=== PATIENT | female | born 1945 | race Caucasian/White ===

== ENCOUNTER 2022-04-26 13:38 | Outpatient (CLI) | payer OTHER, SELFPAY | END 2022-04-26 13:39 | disposition home or self-care (01) | LOC: INJ CL 13:39 | PROVIDERS: PCP Family Medicine; Visit Provider Family Medicine | DX: M17.12 Unilateral primary osteoarthritis, left knee (principal); M25.562 Pain in left knee | CPT/HCPCS: 64454 ==

== ENCOUNTER 2022-05-16 11:29 | Outpatient (REF) | payer OTHER, SELFPAY ==
[2022-05-16 14:18] LABS: SARS PCR* Negative SARS-CoV-2 (Negative)
== END 2022-05-16 11:30 | disposition home or self-care (01) ==
LOC: NPINS 11:29
PROVIDERS: PCP Family Medicine; Visit Provider Family Medicine
DX: Z11.52 Encounter for screening for COVID-19 (principal)
CPT/HCPCS: 87635

== ENCOUNTER 2022-05-17 12:10 | Outpatient (CLI) | payer OTHER, SELFPAY | END 2022-05-17 12:11 | disposition home or self-care (01) | LOC: RAD 12:10 | PROVIDERS: PCP Family Medicine; Visit Provider Family Medicine | DX: M17.12 Unilateral primary osteoarthritis, left knee (principal); G89.29 Other chronic pain; M25.562 Pain in left knee | CPT/HCPCS: 64624; J2250; J2405; J3010 ==

== ENCOUNTER 2022-07-21 10:00 | Outpatient (RCR) | payer OTHER, SELFPAY | END 2022-10-25 11:13 | disposition home or self-care (01) | PROVIDERS: PCP Family Medicine; Visit Provider Family Medicine | DX: M17.12 Unilateral primary osteoarthritis, left knee (principal); Z51.89 Encounter for other specified aftercare | CPT/HCPCS: 97110; 97162 ==

== ENCOUNTER 2023-05-01 13:59 | Emergency (ER) | payer OTHER, SELFPAY ==
[2023-05-01 14:07] VITALS: BP 152/86; PULSE 94; RESP 18; TEMP 36.3; O2SAT 96; BMI 23.8
--- NOTE | 2023-05-01 14:25 | CRLHL7_ITS ---
For Patients: As a result of the Century Cures Act, medical imaging exams and procedure reports are released immediately into your electronic medical record. You may view this report before your referring provider. If you have questions, please contact your health care provider. INDICATION: Pain TECHNIQUE: Cervical spine 3 view. COMPARISON: None. FINDINGS: Bones: Trace anterolisthesis of C3 on C4 and C4 on C5. Mild reversal of the normal cervical lordosis. Changes of ACDF at C6-C7. no fractures. Lateral masses of C1 are aligned on C2. Atlanto-axial interval is maintained. Joints: Multilevel areas of disc space height loss. Soft tissues: Unremarkable. IMPRESSION: Multilevel cervical spondylosis. Dictated by Chema Cobb MD @ 05/01/2023 4:04:48 PM (Electronically Signed)
--- NOTE | 2023-05-01 16:11 | ED.GENADULT ---
HPI - General Adult General Chief complaint: Neck Injury/Pain Stated complaint: Neck pain Time Seen by Provider: 05/01/23 14:17 Source: patient Mode of arrival: ambulatory Limitations: no limitations History of Present Illness HPI narrative: 77-year-old female coming in today complaining of neck pain that is been going on for approximately 1 week. She denies any systemic symptoms such as fevers, chills, nausea or vomiting. Pain comes and goes throughout the day. She has been using heat and ice and Advil which does help. Pain is located on the right side of the posterior neck does not radiate. She has no pain in her arm going up the head. She denies any confusion, fogginess, changes in her hearing or vision. No difficulty breathing or swallowing. Nothing seems to make the pain worse. She did have surgery on her neck she states several years ago. Related Data Home Medications Medication Instructions Recorded Confirmed albuterol 90 mcg/actuation aerosol 2 spray inhalation PRN 08/19/22 08/19/22 inhaler atorvastatin 40 mg tablet mg PO .Bedtime 08/19/22 08/19/22 budesonide 180 mcg/actuation 1 inhalation BID 08/19/22 08/19/22 breath activated powder inhaler montelukast 10 mg tablet 10 mg PO .Bedtime 08/19/22 05/01/23 omeprazole 40 mg capsule,delayed mg PO DAILY 08/19/22 08/19/22 release sertraline 100 mg tablet 150 mg PO DAILY 08/19/22 05/01/23 trazodone 50 mg tablet mg PO 08/19/22 08/19/22 Previous Rx's Medication Instructions Recorded doxycycline hyclate 100 mg capsule 100 mg PO BID #20 caps 08/19/22 methylprednisolone 4 mg tablets in See Rx Instructions PO .COMPLEX 05/01/23 a dose pack (Medrol (Erick)) #21 ea Allergies Allergy/AdvReac Type Severity Reaction Status Date / Time codeine Allergy Unknown Nausea Verified 08/19/22 15:41 Iodine and Iodide Containing Allergy Verified 08/19/22 15:41 Produc lisinopril AdvReac Mild Cough and Verified 08/19/22 15:41 upset stomach contrast dye Allergy Mild Hives Uncoded 08/19/22 15:41 Review of Systems Status of ROS: Reports: 10 or more systems reviewed and unremarkable except as noted in History and below PFSH PFS Surgical History History of total abdominal hysterectomy ?Z90.710 - Acquired absence of both cervix and uterus (ICD-10) History of neck surgery ?Z98.890 - Other specified postprocedural states (ICD-10) History of breast biopsy ?Z98.890 - Other specified postprocedural states (ICD-10) Social History Smoking Status: Former smoker How often do you have a drink containing alcohol: 2-3 times a week AUDIT-C Alcohol total score: 3 Non-prescribed substance use: denies use Exam Narrative: Exam Narrative: Well-nourished well-developed patient in no acute distress. Alert and oriented. Answers questions appropriately. Mood and affect are appropriate. Thoughts are goal oriented and rational. No tangential or magical thinking noted. Patient speaks in full sentences without needing to catch her breath. Voice sounds normal. HEENT: Normocephalic atraumatic. Pupils are equally round reactive to light. Extraocular muscles are intact. Conjunctivae are moist without any icterus noted. Moist mucous membranes. Posterior pharynx is normal. Neck is soft without any lymphadenopathy or thyromegaly. No masses are appreciated. She has full range of motion with flexion, extension, side bending and rotation without significant discomfort. She has minimal discomfort to palpation of the right paraspinal musculature. No tenderness over the cervical spine itself. There is no jugular venous distention. Skin: Well perfused without any obvious rashes. Const: Vital Signs, click to edit/add: Vital Signs - 24 hr 05/01/23 14:07 Temperature 97.3 F L Pulse Rate [Pulse Oximeter] 94 Respiratory Rate 18 Blood Pressure [Le ft Upper Arm] 152/86 H Pulse Oximetry 96 Oxygen Delivery Me thod Room Air Course Course Hospital Course: Cervical spine x-rays were done she did not show any acute pathology. We discussed symptomatic treatment. I did offer the patient a narcotic pain medication which she declined. Vital Signs Vital signs: Initial Vital Signs Temperature 97.3 F L 05/01/23 14:07 Temperature Source Temporal Artery Scan 05/01/23 14:07 Pulse Rate 94 05/01/23 14:07 Respiratory Rate 18 05/01/23 14:07 Blood Pressure 152/86 H 05/01/23 14:07 Blood Pressure Mean 108 H 05/01/23 14:07 Blood Pressure Position Sitting 05/01/23 14:07 Pulse Oximetry 96 05/01/23 14:07 Oxygen Delivery Method Room Air 05/01/23 14:07 Vital Signs Temperature 97.3 F L 05/01/23 14:07 Pulse Rate 94 05/01/23 14:07 Respiratory Rate 18 05/01/23 14:07 Blood Pressure 152/86 H 05/01/23 14:07 Pulse Oximetry 96 05/01/23 14:07 Oxygen Delivery Method Room Air 05/01/23 14:07 Temperature 97.3 F L 05/01/23 14:07 Pulse Rate 94 05/01/23 14:07 Respiratory Rate 18 05/01/23 14:07 Blood Pressure 152/86 H 05/01/23 14:07 Pulse Oximetry 96 05/01/23 14:07 Oxygen Delivery Method Room Air 05/01/23 14:07 Medical Decision Making MDM Narrative Medical decision making narrative: 77-year-old female with neck pain. Likely musculoskeletal in nature. Considered the possibility of arthritis, neck strain, fractures. Will continue heat as needed, and will add a Medrol Dosepak. Follow-up with primary care provider if not improving. Imaging Data X-ray cervical spine: Attestation: I have reviewed the pertinent imaging results. Radiologist's impression: Cervical spine 3 view. COMPARISON: None. FINDINGS: Bones: Trace anterolisthesis of C3 on C4 and C4 on C5. Mild reversal of the normal cervical lordosis. Changes of ACDF at C6-C7. no fractures. Lateral masses of C1 are aligned on C2. Atlanto-axial interval is maintained. Joints: Multilevel areas of disc space height loss. Soft tissues: Unremarkable. IMPRESSION: Multilevel cervical spondylosis. Discharge Plan Discharge Clinical Impression: Acute neck pain Patient Disposition: Home, Self-Care Condition: Stable Additional Instructions: Continue to use ice or heat, whichever feels better. Follow-up with primary care provider if you are not improving, return to the ER if you feel like you are getting worse. Prescriptions: New methylprednisolone [Medrol (Erick)] 4 mg tablets,dose pack See Rx Instructions .ROUTE .COMPLEX Qty: 21 0RF Rx Instructions: orally per package directions No Action budesonide 180 mcg/actuation aerosol powdr breath activated 1 inhalation BID montelukast 10 mg tablet 10 mg PO .Bedtime omeprazole 40 mg capsule,delayed release(DR/EC) PO DAILY trazodone 50 mg tablet PO albuterol 90 mcg/actuation aerosol 2 spray inhalation PRN sertraline 100 mg tablet 150 mg PO DAILY atorvastatin 40 mg tablet PO .Bedtime doxycycline hyclate 100 mg capsule 100 mg PO BID Qty: 20 0RF Follow Up/Referrals: Anna Marie Lopez MD [Primary Care Provider] - Stand Alone [facility] Info Instructions
== END 2023-05-01 16:30 | disposition home or self-care (01) ==
PROVIDERS: Emergency Provider Family Medicine; PCP Family Medicine
DX: M54.2 Cervicalgia (principal)
CPT/HCPCS: 72040; 99283; 99284

== ENCOUNTER 2023-08-18 13:42 | Emergency (ER) | payer OTHER, SELFPAY ==
[2023-08-18 14:01] VITALS: BP 132/84; PULSE 89; RESP 16; TEMP 36.4; O2SAT 99; BMI 23.8
--- NOTE | 2023-08-18 14:06 | CRLHL7_ITS ---
For Patients: As a result of the Century Cures Act, medical imaging exams and procedure reports are released immediately into your electronic medical record. You may view this report before your referring provider. If you have questions, please contact your health care provider. Indication: Cough Technique: Chest 2 views Comparison: Chest x-ray 06/29/2016 Findings/Impression: Cardiovascular and mediastinum: Normal heart size with atherosclerotic calcification. Lungs and pleural spaces: Lungs are clear. No sign of infiltrate or mass. No sign of pleural effusion. No pneumothorax. Bones and soft tissues: Cervicothoracic junction surgery. Dictated by Boris Saleh MD @ 08/18/2023 3:33:33 PM (Electronically Signed)
[2023-08-18 14:54] LABS: PCR FLU A Negative PCR FLU A (Negative); PCR FLU B Negative PCR FLU B (Negative); PCR RSV Negative PCR RSV (Negative)
[2023-08-18 16:01] LABS: SARS PCR* Negative SARS-CoV-2 (Negative)
--- NOTE | 2023-08-18 17:05 | ED_ITS ---
HPI - General Adult General Chief complaint: Cough Stated complaint: chest pain, shortness of breath Time Seen by Provider: 08/18/23 17:03 History of Present Illness HPI narrative: Patient here with three weeks of persistent cough, fatigued , headaches, dizziness, and SOB with exertion. Called clinic, informed to come to the ER. Taking fluticasone inhaler, albuterol inhaler, and fluticasone nasal spray. 78-year-old woman presenting to the emergency department with concern of cough, tired, some headaches, exertional dyspnea. Called as triage line recommend of company emergency department. Does have an underlying history of reactive airway/asthma on has controller inhalers. Using also rescue inhalers. Asthma is mild persistent I believe. Nebulizer is available but needs meds. History postnasal drip, allergic rhinitis? No rash. No fever. Seems to be describing some coughing jags. Related Data Home Medications Medication Instructions Recorded Confirmed albuterol 90 mcg/actuation aerosol 2 spray inhalation PRN 08/19/22 08/19/22 inhaler atorvastatin 40 mg tablet mg PO .Bedtime 08/19/22 08/19/22 budesonide 180 mcg/actuation 1 inhalation BID 08/19/22 08/19/22 breath activated powder inhaler montelukast 10 mg tablet 10 mg PO .Bedtime 08/19/22 05/01/23 omeprazole 40 mg capsule,delayed mg PO DAILY 08/19/22 08/19/22 release sertraline 100 mg tablet 150 mg PO DAILY 08/19/22 05/01/23 trazodone 50 mg tablet mg PO 08/19/22 08/19/22 Previous Rx's Medication Instructions Recorded doxycycline hyclate 100 mg capsule 100 mg PO BID #20 caps 08/19/22 albuterol sulfate 90 mcg/actuation 1 - 2 inh inhalation Q2-3H PRN 08/18/23 aerosol inhaler shortness of breath or wheezing #8.5 grams ipratropium 0.5 mg-albuterol 3 mg 3 ml inhalation TID-QID #90 mL 08/18/23 (2.5 mg base)/3 mL nebulization soln prednisone 20 mg tablet 40 mg (2 x 20 mg) PO DAILY 5 days 08/18/23 #10 tabs Allergies Allergy/AdvReac Type Severity Reaction Status Date / Time codeine Allergy Unknown Nausea Verified 08/19/22 15:41 Iodine and Iodide Containing Allergy Verified 08/19/22 15:41 Produc lisinopril AdvReac Mild Cough and Verified 08/19/22 15:41 upset stomach contrast dye Allergy Mild Hives Uncoded 08/19/22 15:41 Review of Systems Status of ROS: Reports: 6 or more systems reviewed and unremarkable except as noted in History and below [facility] Surgical History History of total abdominal hysterectomy ?Z90.710 - Acquired absence of both cervix and uterus (ICD-10) History of neck surgery ?Z98.890 - Other specified postprocedural states (ICD-10) History of breast biopsy ?Z98.890 - Other specified postprocedural states (ICD-10) Social History Smoking Status: Former smoker Do you use any of these nicotine containing products: None How often do you have a drink containing alcohol: never How often do you have six or more drinks on one occasion: Never AUDIT-C Alcohol total score: 0 Non-prescribed substance use: denies use Exam Narrative: Exam Narrative: Pleasant. NAD the mildly labored in breathing. Fully alert. Can speak in full sentences. Not tachypneic really. Intermittent cough. Seems as though hesitating to inhale too quickly as might trigger cough. Nasopharyngeally congested without swelling or erythema or pain. Oropharynx is moist and I think with cobblestoning. Neck is supple without lymphadenopathy. Lungs with diffuse trace we/squeaks and some mild crepitus. Extremities are without edema. Well- perfused. Mild lacrimation at the eyes without exudate. TMs without inflammation. Abdomen is soft. Heart with regular rate and rhythm. Skin is warm and dry without rash. Const: Vital Signs, click to edit/add: Vital Signs - 24 hr 08/18/23 14:01 Temperature 97.5 F L Pulse Rate [Pulse Oximeter] 89 Respiratory Rate 16 Blood Pressure [Ri ght Upper Arm] 132/84 Pulse Oximetry 99 Oxygen Delivery Me thod Room Air Documenting provider has reviewed patient's vital signs: yes Course Vital Signs Vital signs: Initial Vital Signs Temperature 97.5 F L 08/18/23 14:01 Temperature Source Temporal Artery Scan 08/18/23 14:01 Pulse Rate 89 08/18/23 14:01 Respiratory Rate 16 08/18/23 14:01 Blood Pressure 132/84 08/18/23 14:01 Blood Pressure Mean 100 08/18/23 14:01 Blood Pressure Position Sitting 08/18/23 14:01 Pulse Oximetry 99 08/18/23 14:01 Oxygen Delivery Method Room Air 08/18/23 14:01 Vital Signs Temperature 97.5 F L 08/18/23 14:01 Pulse Rate 89 08/18/23 14:01 Respiratory Rate 16 08/18/23 14:01 Blood Pressure 132/84 08/18/23 14:01 Pulse Oximetry 99 08/18/23 14:01 Oxygen Delivery Method Room Air 08/18/23 14:01 Temperature 97.5 F L 08/18/23 14:01 Pulse Rate 86 08/18/23 18:16 Respiratory Rate 20 08/18/23 18:16 Blood Pressure 146/82 H 08/18/23 18:16 Pulse Oximetry 96 08/18/23 18:16 Oxygen Delivery Method Room Air 08/18/23 18:16 Medical Decision Making MDM Narrative Medical decision making narrative: History of asthma appears to have some degree of exacerbation by likely viral illness. Would screen for COVID and influenza and RSV. Given duration of symptoms would be good idea to do an x-ray though I doubt pneumonia but that remains in differential. I do not think this is cardiovascular in origin. No history of heart failure or ischemic disease. Symptoms do not seem consistent with pulmonary embolus. No evidence of fluid overload other than some trace crepitus. Would treat symptoms and x-ray. Monitor oximetry. X-ray reviewed by me without acute abnormality. Chronic/postsurgical changes Was given DuoNeb, prednisone in department. Radiology over-read as below Chest 2 views Comparison: Chest x-ray 06/29/2016 Findings/Impression: Cardiovascular and mediastinum: Normal heart size with atherosclerotic calcification. Lungs and pleural spaces: Lungs are clear. No sign of infiltrate or mass. No sign of pleural effusion. No pneumothorax. Bones and soft tissues: Cervicothoracic junction surgery Overall improved. Oxygen saturations slightly depressed not unexpected following nebulization. Feels like breathing a little easier. I think still with some rhinorrhea-related cough. See patient discharge plan Lab Data Lab results reviewed: Yes I reviewed the patient's lab results Labs: Lab Results 08/18/23 Range/Units 14:08 SARS-CoV-2 (PCR) Negative SARS-CoV-2 (Negative) Influenza Type A (PCR) Negative PCR FLU A (Negative) Influenza Type B (PCR) Negative PCR FLU B (Negative) RSV (PCR) Negative PCR RSV (Negative) Discharge Plan Discharge Clinical Impression: Asthma exacerbation, URI (upper respiratory infection) Patient Disposition: Home, Self-Care Condition: Improved Additional Instructions: Take this nebulization tubing and apparatus with you. Might benefit from sleeping under the mist of a cool mist humidifier or maybe menthol vapors would be helpful. Sucking on ice chips might be helpful. Prescribing prednisone and DuoNebs. Use the DuoNebs 3-4 times daily over the next 4 days and can usual rescue inhaler between if you need. Prescriptions: New albuterol sulfate 90 mcg/actuation HFA aerosol inhaler 1 - 2 inh inhalation Q2-3H PRN (Reason: shortness of breath or wheezing) Qty: 8.5 1RF ipratropium-albuterol 0.5 mg-3 mg(2.5 mg base)/3 mL solution for nebulization 3 ml inhalation TID-QID Qty: 90 1RF prednisone 20 mg tablet 40 mg PO DAILY 5 Days Qty: 10 0RF No Action budesonide 180 mcg/actuation aerosol powdr breath activated 1 inhalation BID montelukast 10 mg tablet 10 mg PO .Bedtime omeprazole 40 mg capsule,delayed release(DR/EC) PO DAILY trazodone 50 mg tablet PO albuterol 90 mcg/actuation aerosol 2 spray inhalation PRN sertraline 100 mg tablet 150 mg PO DAILY atorvastatin 40 mg tablet PO .Bedtime doxycycline hyclate 100 mg capsule 100 mg PO BID Qty: 20 0RF Follow Up/Referrals: Anna Marie Lopez MD [Primary Care Provider] - Stand Alone Forms: [facility] Info Instructions
[2023-08-18] MEDS: predniSONE 20 MG TABLET 60 MG PO (17:43)
[2023-08-18] MEDS: IPRAT-ALBUT 0.5-2.5 MG/3 ML NEB 1 NEB IH (17:44)
[2023-08-18 18:16] VITALS: BP 146/82; PULSE 86; RESP 20; O2SAT 96
== END 2023-08-18 18:24 | disposition home or self-care (01) ==
PROVIDERS: Emergency Provider Family Medicine; PCP Family Medicine
DX: J45.901 Unspecified asthma with (acute) exacerbation (principal); J06.9 Acute upper respiratory infection, unspecified
CPT/HCPCS: 71046; 87631; 94640; 99283; 99284; J7512

== ENCOUNTER 2023-09-30 12:39 | Emergency (ER) | payer OTHER, SELFPAY ==
[2023-09-30 12:49] VITALS: BP 164/103; PULSE 70; RESP 20; O2SAT 96; BMI 23.8
--- NOTE | 2023-09-30 13:05 | ED.GENADULT ---
HPI - General Adult General Chief complaint: Extremity Pain/Injury, Upper Stated complaint: L arm inflamed Time Seen by Provider: 09/30/23 12:42 History of Present Illness HPI narrative: Patient is a 78-year-old woman who is sent from urgent care for evaluation of left arm pain which started yesterday evening and has been present ever since. She had difficulty sleeping as she could not get comfortable. She describes pain that radiates from the back of her neck down the back of her arm into her 5th finger. She notes that she had surgery a couple of years ago in her neck and since then has had a little weakness in her pinky finger which her surgeon said was normal and would improve although she says it did not ever improved. She feels like her sliding joint maker strength is a little reduced, and she has numbness in her pinky finger which also she says is residual from her surgery. No trauma, no fevers or chills, no chest pain or difficulty breathing. Sent here because of concerns of a possible cardiac etiology. She does not smoke, has no history of coronary artery disease and no history of exertional symptoms. In fact, she walked to urgent care from her house this morning without any worsening her symptoms. Related Data Home Medications Medication Instructions Recorded Confirmed albuterol 90 mcg/actuation aerosol 2 spray inhalation PRN 08/19/22 08/19/22 inhaler atorvastatin 40 mg tablet mg PO .Bedtime 08/19/22 08/19/22 montelukast 10 mg tablet 10 mg PO .Bedtime 08/19/22 09/30/23 omeprazole 40 mg capsule,delayed mg PO DAILY 08/19/22 08/19/22 release sertraline 100 mg tablet 150 mg PO DAILY 08/19/22 09/30/23 trazodone 50 mg tablet mg PO 08/19/22 08/19/22 cyanocobalamin (vitamin B-12) 1,000 mcg PO DAILY 09/30/23 09/30/23 1,000 mcg tablet Previous Rx's Medication Instructions Recorded albuterol sulfate 90 mcg/actuation 1 - 2 inh inhalation Q2-3H PRN 08/18/23 aerosol inhaler shortness of breath or wheezing #8.5 grams ipratropium 0.5 mg-albuterol 3 mg 3 ml inhalation TID-QID #90 mL 08/18/23 (2.5 mg base)/3 mL nebulization soln Allergies Allergy/AdvReac Type Severity Reaction Status Date / Time Iodine and Iodide Containing Allergy Verified 09/30/23 11:12 Produc lisinopril AdvReac Mild Cough and Verified 09/30/23 11:12 upset stomach contrast dye Allergy Mild Hives Uncoded 09/30/23 11:12 Review of Systems Status of ROS: Reports: 10 or more systems reviewed and unremarkable except as noted in History and below PFSH PFS Surgical History History of total abdominal hysterectomy ?Z90.710 - Acquired absence of both cervix and uterus (ICD-10) History of neck surgery ?Z98.890 - Other specified postprocedural states (ICD-10) History of breast biopsy ?Z98.890 - Other specified postprocedural states (ICD-10) Social History Smoking Status: Former smoker Do you use any of these nicotine containing products: None How often do you have a drink containing alcohol: never How often do you have six or more drinks on one occasion: Never AUDIT-C Alcohol total score: 0 Non-prescribed substance use: denies use Exam Narrative: Exam Narrative: Vital signs as noted above. In general, an alert, well-appearing patient. She is holding an ice pack on her left forearm. Head: Normocephalic, atraumatic. Eyes: Pupils are equal reactive. Extraocular movements are full. Conjunctivae are normal. ENT: Mucous membranes are moist. Throat is normal. Neck: Supple without lymphadenopathy. Nontender to palpation. Heart: Regular rate and rhythm. No murmur or rub. Lungs: Clear bilaterally. No increased work of breathing, crackles or wheezes. Abdomen: Soft and nontender. No organomegaly. Extremities: Well perfused. No edema. No calf tenderness. Pulses intact. Neurologic: Patient is alert and oriented to person and place. Speech is fluent. Face is symmetric. She has 5/5 strength throughout the upper extremities bilaterally with the exception adduction of her pinky finger on the left which is slightly weak. Paresthesias of the left 5th finger, sensation is intact to light touch. Affect: Normal. Skin: Warm and dry. Well perfused. Const: Vital Signs, click to edit/add: Vital Signs - 24 hr 09/30/23 12:49 Pulse Rate [Left P ulse Oximeter] 70 Respiratory Rate 20 Blood Pressure [Le ft Upper Arm] 164/103 H Pulse Oximetry 96 Oxygen Delivery Me thod Room Air Course Course ED Course: Patient presents with symptoms that are consistent with radiculopathy. I do not think that this is cardiac. Discussed with her that I would recommend a trial of steroids, she took hydrocodone once overnight which she found helpful, and she would like to have a few more those available. She also has been using ibuprofen which she says she tolerates well and can continue. She has an appointment upcoming this week with her primary doctor which I have encouraged her to keep. If symptoms are progressive were not improving imaging with MRI may be warranted. Return at any time for acute worsening or severe uncontrolled symptoms. Vital Signs Vital signs: Initial Vital Signs Pulse Rate 70 09/30/23 12:49 Pulse Rhythm Regular 09/30/23 12:49 Pulse Strength 3+ Normal 09/30/23 12:49 Respiratory Rate 20 09/30/23 12:49 Blood Pressure 164/103 H 09/30/23 12:49 Blood Pressure Mean 123 H 09/30/23 12:49 Blood Pressure Position Sitting 09/30/23 12:49 Pulse Oximetry 96 09/30/23 12:49 Oxygen Delivery Method Room Air 09/30/23 12:49 Vital Signs Pulse Rate 70 09/30/23 12:49 Respiratory Rate 20 09/30/23 12:49 Blood Pressure 164/103 H 09/30/23 12:49 Pulse Oximetry 96 09/30/23 12:49 Oxygen Delivery Method Room Air 09/30/23 12:49 Pulse Rate 70 09/30/23 12:49 Respiratory Rate 20 09/30/23 12:49 Blood Pressure 164/103 H 09/30/23 12:49 Pulse Oximetry 96 09/30/23 12:49 Oxygen Delivery Method Room Air 09/30/23 12:49 Discharge Plan Discharge Clinical Impression: Cervical radiculopathy, acute Patient Disposition: Home, Self-Care Condition: Stable Instructions: Cervical Radiculopathy (ED) Additional Instructions: Take prednisone as follows: 3 tablets daily for 3 days, then 2 tablets daily for 3 days, then 1 tablet daily for 3 days. Ibuprofen if needed. [place] if needed for more severe pain. Follow-up with your primary doctor this coming week as planned, return at any time to the ER for acute worsening or severe uncontrolled symptoms. Prescriptions: No Action montelukast 10 mg tablet 10 mg PO .Bedtime omeprazole 40 mg capsule,delayed release(DR/EC) PO DAILY trazodone 50 mg tablet PO albuterol 90 mcg/actuation aerosol 2 spray inhalation PRN sertraline 100 mg tablet 150 mg PO DAILY atorvastatin 40 mg tablet PO .Bedtime cyanocobalamin (vitamin B-12) 1,000 mcg tablet 1,000 mcg PO DAILY albuterol sulfate 90 mcg/actuation HFA aerosol inhaler 1 - 2 inh inhalation Q2-3H PRN (Reason: shortness of breath or wheezing) Qty: 8.5 1RF ipratropium-albuterol 0.5 mg-3 mg(2.5 mg base)/3 mL solution for nebulization 3 ml inhalation TID-QID Qty: 90 1RF Follow Up/Referrals: Anna Marie Lopez MD [Primary Care Provider] - Stand Alone Forms: [facility] Info Instructions
--- OUTSIDE RECORDS SUMMARY | 2023-09-30 13:14 | XMS_ITS | Continuity of Care Document ---
Author Name Unknown Organization [facility] Address [address] [place] [address] Phone Care Team Providers Care Managing Director Atlas Name Role Phone Malini Bell MD Unavailable Unavailable Allergies, Adverse Reactions, Alerts Substance Reaction Status Criticality Opioids - Morphine Analogues Nausea Active No Information amoxicillin vomi Active No Information Iodinated Contrast Media hives, rash Active No Information codeine Nausea Active No Information Medications Medication Instructions Dosage Effective Dates (start - stop) Status Comments ALBUTEROL SULFATE (unknown strength) Not Available - Active ATORVASTATIN CALCIUM (unknown strength) Not Available - Active BUDESONIDE (unknown strength) Not Available - Active FLUTICASONE PROPIONATE MICRO (unknown strength) Not Available - Active MONTELUKAST SODIUM (unknown strength) Not Available - Active OMEPRAZOLE (unknown strength) Not Available - Active SERTRALINE HCL (unknown strength) Not Available - Active TRAZODONE HCL (unknown strength) Not Available - Active Procedures Procedure Date OFFICE/OUTPATIENT VISIT EST Phone Office/Outpatient Visit,[facility] Office/Outpatient Visit,[facility], [facility] 2014 X-Ray Exam Of Neck Spine, 4+ Views Advance Directives Directive Yes / No Effective Date File Name No Information Encounters Encounter Description Practice Location Reason(s) For Visit Diagnoses Date Provider Providers Copied on Encounter Yo[facility] Go, [address], [place], [id number], [place] tel:[phone] [facility] No Information 1 Ray Ellis [facility], [address] [place] [address] [address], [place], [id number] , [place]. tel:[phone] OFFICE/OUTPAT IENT VISIT EST Phone [facility], [address], [place], [address], [place] tel:[phone] [facility] No Information 1 Mehbod Amir. [facility], [address] [place] [address] [address], [place], [place], [id number] , [place]. [phone] Referring Provider: Efrain Roche, [facility] [address] [place], [address]. tel:[phone] Office/Outpat ient Visit,New, Mod [facility], [address], [place], [address], [place] tel:[phone] [facility] Spinal stenosis, lumbar region with neurogenic claudicationOther forms of scoliosis, lumbar region Jan- 1 Mehbod Amir. [facility], [address] [place] [address] [address], [place], [place], [id number] , [place]. [phone] Referring Provider: Efrain Roche, [facility] [address] [place], [address]. tel:[phone] Office/Outpat ient Visit,[place] [facility], [address], [place], [address], [place] tel:[phone] [facility] OVERWEIGHTSpinal stenosis of cervical regionCervical radiculopathy Mar-0 6-201 5 Jorge Luis chang. [facility], [address] [place] [address], [address], [place], [place], [address] , [place]. [phone] Referring Provider: Efrain Roche, [facility] [address] [place], [address]. tel:[phone] Family History Family Member Type Diagnosis Age At Onset Problem (finding) Payers Payer name Insurance type Covered constitution party ID Authornandaa tiestelle(s) Neelam Ram [id number] Social History Type Description Quantity Date Captured Comments Sex Female Smoking Status No Information Chief Complaint And Reason For Visit No Information Reason For Referral Reason For Referral No Information Plan Of Treatment Date Type Action Status Future Order: Radiology Order AP Lateral Cervical (APlatcerv), Ordered on: Ordered Future Order: Radiology Order F/ E Cervical (F/Ecervical), Ordered on: Ordered History Of Present Illness Encounter Date Complaint History Of Prese nt Illness No Information Functional Status Date Functional Assessmen t No Information Instructions Date Instruction Additional Infor mation Weight Management Related to Ove [facility] Assessments Type Assessment Date No Information Patient Care Teams Name Effective Dates (start - stop) Status Members No Information
--- OUTSIDE RECORDS SUMMARY | 2023-09-30 13:14 | XMS_ITS | Continuity of Care Document ---
Author Name Unknown Organization [facility] Address [address] [address] [place] [address] Phone Care Team Providers Care Livestock Nutrition Territory Manager Name Role Phone Unavailable Unavailable Unavailable Allergies, Adverse Reactions, Alerts Substance Reaction Status Criticality MOLD EXTRACTS Sneezing Active No Information codeine Nausea Active No Information codeine Nausea Active No Information WARNIN allergy(ies) could not be collected because the type is not supported. Please contact the source practice for further details. Medications Medication Instructions Dosage Effective Dates (start - stop) Status Comments escitalopram 5 mg tablet take 3 Tablet (15MG) by oral route every day 15 MG - Active ESTRADIOL (unknown strength) Take one tablet by mouth daily Not Available - Active IBUPROFEN (unknown strength) as needed Not Available - Active Prevacid 30 mg Cap Take 1 tablet by mouth daily 30 minutes prior to meal - Active pravastatin 40 mg tablet take 1 tablet (40MG) by oral route every day 40 MG - Active omeprazole 10 mg capsule,delayed release take 1 Capsule (10MG) by oral route every day before a meal 10 MG - Active trazodone 50 mg tablet take 1 Tablet (50MG) by oral route every day 50 MG - Active Advil 200 mg tablet take 1 - 2 Tablet (200MG) by oral route every 6 hours as needed with food 200 MG - Active Procedures Procedure Date Offic/outpt E&m Estab Mod-hi 2 Routine Serum Collection Colonoscopy Flex; W/remov Les- 13 Level Iv-surg Path Gross/micro 13 Advance Directives Directive Yes / No Effective Date File Name No Information Encounters Encounter Description Practice Location Reason(s) For Visit Diagnoses Date Provider Providers Copied on Encounter [facility], [address] [address], [place], [id number], [place] tel:[phone] [facility] No Information 3 No Information Offic/outpt E&m Estab Mod-hi 2 [facility], [address] [address], [place], [id number], [place] tel:[phone] [facility] Diarrhea (chief complaint) Abdominal pain (chief complaint) LLQ PainLLQ PainChange In Bowel Habits 3 Faye Arroyo. [address], [id number], [place]. tel:[phone] [facility], [address] [address], [place], [id number], [place] tel:[phone] [facility] Diverticulosis Of ColonBenign Neoplasm ColonLLQ PainBenign Neoplasm ColonLLQ PainDiverticul osis Of Colon 3 Faye Arroyo. [address] [facility] [address], [place], [place], [id number], [place]. tel:[phone] [facility], [address] [address], [place], [id number], [place] tel:[phone] [facility] No Information 5 Felipe Garza. [address] [facility] [address], [place], [place], [address], [place]. tel:[phone] Referring Provider: Gurpreet Otero, [address], [place], [address]. tel:[phone] [facility], [address] [address], [place], [id number], [place] tel:[phone] [facility] No Information 5 Alcira Oquendo. [address] [facility], [address], [place], [place], [address], [place]. tel:[phone] Referring Provider: Gurpreet Otero, [address], [place], [address]. tel:[phone] Family History Family Member Type Diagnosis Age At Onset First degree family history Problem (finding) No history of Cancer, colon First degree family history Problem (finding) No history of Ulcerative Colitis First degree family history Problem (finding) Cancer, breast First degree family history Problem (finding) No Family history of No history of Colon Polyps First degree family history Problem (finding) Cancer -renal First degree family history Problem (finding) No history of Crohn's First degree family history Problem (finding) diverticulitis of colon First degree family history Problem (finding) malignant neoplasm of lung First degree family history Problem (finding) alcoholism First degree family history Problem (finding) Cirrhosis First degree family history Problem (finding) malignant neoplasm of ovary Payers Payer name Insurance type Covered green party ID Authoriza tion(s) No Information Social History Type Description Quantity Date Captured Comments Sex Female Smoking Status No Information Chief Complaint And Reason For Visit No Information Reason For Referral Reason For Referral No Information History Of Present Illness Encounter Date Complaint History Of Prese nt Illness No Information Functional Status Date Functional Assessmen t No Information Instructions Date Instruction Additional Infor mation No Information Assessments Type Assessment Date No Information Patient Care Teams Name Effective Dates (start - stop) Status Members No Information
== END 2023-09-30 13:22 | disposition home or self-care (01) ==
LOC: ED 13:12
PROVIDERS: Emergency Provider Emergency Medicine; PCP Family Medicine
DX: M54.12 Radiculopathy, cervical region (principal)
CPT/HCPCS: 99283; 99284

== ENCOUNTER 2024-07-24 06:43 | Outpatient (CLI) | payer OTHER, SELFPAY ==
--- OUTSIDE RECORDS SUMMARY | 2024-07-24 06:45 | XMS_ITS | Continuity of Care Document ---
Author Organization [facility] Address [address] [address] [place] [address] Phone Care Team Providers Care Practice Advisor Name Role Phone Unavailable Unavailable Unavailable Allergies, [...] Procedure Date Offic/outpt E&m Estab Mod-hi 2 13 Routine Serum Collection Colonoscopy Flex; W/remov Les- 13 Level Iv-surg Path Gross/micro 13 Advance Directives Directive Yes / No Effective Date File Name No Information Encounters Encounter Description Practice Location Reason(s) For Visit Diagnoses Date Provider Providers Copied on Encounter [facility], [address] [address], [place], [id number], [place] tel:[phone] [facility] No Information 3 No Information Offic/outpt E&m Estab Mod-hi 2 [facility], [address] [address], [place], [id number], [place] tel:[phone] [facility] Diarrhea (chief complaint) Abdominal pain (chief complaint) LLQ PainLLQ PainChange In Bowel Habits 3 Faye Arroyo. [address], [id number], [place]. tel:[phone] [facility], [address] [address], [place], [address], [place] tel:[phone] [facility] Diverticulosis Of ColonBenign Neoplasm ColonLLQ PainBenign Neoplasm ColonLLQ PainDiverticul osis Of Colon 3 Faye Arroyo. [address] [facility] [address], [place], [address], [place]. [phone] [facility], [address] [address], [place], [id number], [place] tel:[phone] [facility] No Information 5 Felipe Garza. [address] [facility] [address], [place], [address], [place]. tel:[phone] Referring Provider: Gurpreet Otero, [facility], [place], [address]. tel:[phone] [facility], [address] [address], [place], [id number], [place] tel:[phone] [facility] No Information 5 Alcira Oquendo. [address] [facility], [address], [place], [place], [address], [place]. tel:[phone] Referring Provider: Gurpreet Otero, [address], [place], [address]. tel:[phone] Family History Family Member Type Diagnosis Age [...] ovary Payers Payer name Insurance type Covered democrat ID Authoriza tion(s) No Information Social History [...]
--- OUTSIDE RECORDS SUMMARY | 2024-07-24 06:45 | XMS_ITS | Continuity of Care Document ---
Author Organization [facility] Address [address] [place] [address] Phone Care Team Providers Care Computer Builder Name Role Phone Samson GONZALEZ, PhD, Carlos Unavailable Unavai lable Allergies, Adverse Reactions, Alerts Substance Reaction Status [...] Not Available - Active Procedures Procedure Date Office/Outpatient Visit,New, Mod 2023 OFFICE/OUTPATIENT VISIT EST Phone Office/Outpatient Visit,New, Mod 2020 Office/Outpatient Visit,New, Mod 2014 X-Ray Exam Of Neck Spine, 4+ Views Advance Directives Directive Yes / No Effective Date File Name No Information Encounters Encounter Description Practice Location Reason(s) For Visit Diagnoses Date Provider Providers Copied on Encounter Office/Outpat ient Visit,New, Mod [facility], [address], [facility] [place], [id number] , tel:[phone] [facility] Pain in left knee Sep- 4 Davies Carlos. [facility], [address] [place] [address] [address], [place], [address], [place]. [phone] Referring Provider: Efrain Roche, [facility] [address] [place], [address]. tel:[phone] [facility], [address], [place], [place], [id number] , [place] tel:[phone] [facility] Spinal stenosis, lumbar region with neurogenic claudication Sep-1 4 Davies Carlos. [facility], [address] [place] [address] [address], [place], [address], [place]. [phone] Referring Provider: Efrain Roche, [facility] [address] [place], [address]. [phone] OFFICE/OUTPAT IENT VISIT EST [facility], [address], [place], [place], [id number] , [place] [phone] [facility] No Information 1 Mehbod Amir. [facility], [address] [place] [address] [address], [place], [place], [id number] , [place]. [phone] Referring Provider: Efrain Roche, [facility] [address] [place], [address]. tel:[phone] Office/Outpat ient Visit,[facility], [address], [place], [place], [address] , [place] [phone] [facility] Spinal stenosis, lumbar region with neurogenic claudicationOther forms of scoliosis, lumbar region Apr- 1 Mehbod Amir. [facility], [address] [place] [address] [address], [place], [place], [address] , [place]. [phone] Referring Provider: Efrain Roche, [facility] [address] [place], [address]. tel:[phone] Office/Outpat ient Visit,New, [facility], [address], [place], [place], [id number] , [place] tel:[phone] [facility] OVERWEIGHTSpinal stenosis of cervical regionCervical radiculopathy 201 5 Jorge Luis Mello . [facility], [address] [place] [address], [address], [place], [place], [address] , [place]. tel:[phone] Referring Provider: Efrain Roche, [facility] [address] [place] [address], [address]. tel:[phone] Family History Family Member Type Diagnosis Age At Onset Problem (finding) Payers Payer name Insurance type Covered constitution party ID Authoriza tion(s) Neelam Yo CI [id number] Social History Type Description Quantity Date Captured Comments Sex Female Smoking Status No Information Chief Complaint And Reason For Visit No Information Reason For Referral Reason For Referral No Information Plan Of Treatment Date Type Action Status Appointment Nataly Escalante BOOKED Future Order: Radiology Order AP Lateral Cervical (APlatcerv), Ordered on: Ordered Future Order: Radiology Order F/ E Cervical (F/Ecervical), Ordered on: Ordered History Of Present Illness Encounter Date Complaint History Of Prese nt Illness No Information Functional Status Date Functional Assessmen t No Information Instructions Date Instruction Additional Infor adonay Weight Management Related to Ove rweit Assessments Type Assessment Date No Information Patient Care Teams Name Effective Dates (start - stop) Status Members No Information
--- NOTE | 2024-07-24 07:15 | CRLHL7_ITS ---
For Patients: As a result of the Century Cures Act, medical imaging exams and procedure reports are released immediately into your electronic medical record. You may view this report before your referring provider. If you have questions, please contact your health care provider. INDICATION: Low back pain. TECHNIQUE: Multisequence multiplanar MRI of the lumbar spine without the use of intravenous contrast. COMPARISON: MR lumbar spine dated 01/08/2021. FINDINGS: Upper leftward and lower rightward lumbar curvature. Posterior aspects of the vertebral bodies are aligned. Vertebral body heights are maintained. No discrete marrow replacing lesion is identified. An L1 vertebral hemangioma is unchanged. There is similar multilevel disc desiccation and height loss with Modic type 2 degenerative signal at L5-S1. The conus medullaris terminates normally at the L1-L2 level. A subcentimeter left upper pole renal parenchymal hyperdensity is unchanged and most typical for a cyst. T12-L1: No significant spinal canal or neural foraminal stenosis. L1-L2: Symmetric disc bulge. Mild facet joint arthrosis. No significant spinal canal or neural foraminal stenosis. L2-L3: Symmetric disc bulge. Mild facet joint arthrosis. Mild narrowing of the left lateral recess without high-grade spinal canal stenosis. No significant neural foraminal narrowing. L3-L4: Symmetric disc bulge. Moderate facet joint arthrosis. Mild spinal canal stenosis with narrowing of the left lateral recess. Mild right and moderate left neural foraminal narrowing. L4-L5: Symmetric disc bulge. Advanced left facet joint hypertrophy. Moderate narrowing of the left lateral recess with likely mass effect on the traversing L5 nerve root. Moderate-severe left and no significant right neural foraminal narrowing. L5-S1: Symmetric disc bulge. Moderate facet joint arthrosis. No significant spinal canal stenosis. Mild-moderate right and mild left neural foraminal narrowing. IMPRESSION: 1. No appreciable interval change since 01/08/2021. 2. Stable upper leftward and lower rightward lumbar curvature. 3. At L2-L3, mild narrowing of the left lateral recess. 4. At L3-L4, mild spinal canal stenosis, narrowing of the left lateral recess, and moderate left neural foraminal narrowing. 5. At L4-L5, narrowing of the left lateral recess and moderate-severe left neural foraminal narrowing. 6. At L5-S1, mild-moderate right neural foraminal narrowing. Dictated by Ridge Yusuf MD @ 07/24/2024 1:44:59 PM (Electronically Signed)
== END 2024-07-24 06:44 | disposition home or self-care (01) ==
LOC: MRI 06:44
PROVIDERS: PCP Family Medicine; Visit Provider Orthopaedic Surgery Orthopaedic Surgery of the Spine
DX: M54.50 Low back pain, unspecified (principal); M48.061 Spinal stenosis, lumbar region without neurogenic claudication; M51.26 Other intervertebral disc displacement, lumbar region; M51.27 Other intervertebral disc displacement, lumbosacral region; M79.604 Pain in right leg
CPT/HCPCS: 72148

== ENCOUNTER 2024-10-28 12:47 | Outpatient (RCR) | payer MEDICARE, BC, SELFPAY ==
--- NOTE | 2024-10-28 16:21 | PT.OPEX ---
PT [place] Outpatient Eval PT [facility] Outpatient Eval Start: 10/28/24 13:02 Freq: Status: Active Protocol: Document 10/28/24 13:03 KONG (Rec: 10/28/24 16:20 KONG [id number]) E-signed By Alise Pereyra PT Physical Therapy Outpatient Evaluation Insurance Information Recert Due Date 01/25/25 Insurance Information/Comments [employer] G[employer] CHOICE Medical Diagnosis RIGHT HIP OA Treating Diagnosis RIGHT HIP PAIN DECREASED STRENGTH Referring MD GREGORIO Subjective Preferred Name ANAY Whitaker PATIENT REPORTS IT ALL CAME ON ALL OF A SUDDEN. I FELL A WHILE BACK BUT I HAVE BEEN TO EVERY DOCTOR AND BEEN DEALING WITH THIS FOR YEARS PATIENT IS A BIT CONFUSED AND FLUSTERED UNCLEAR OF HER POST PLANS. 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 PATIENT DEMONSTRATES SIGNS AND SYMPTOMS CONSISTENT WITH RIGHT HIP OA CONTRIBUTING TO THEIR FUNCTIONAL IMPAIRMENTS OF PAIN , DIFFICULTY AMB, STAIRS, SQUATS, TRANSITIONAL MVMTS. PATIENT HAS NOTABLE OBJECTIVE FINDING INCLUDING DECREASED PAIN, DECREASED ROM, LBP W/ PATHOLOGY) WHICH ALL ARE CONTRIBUTING TO THE CLINICAL IMPRESSION. PATIENT IS HERE FOR A PREOP VISIT ONLY FOR SURGERY SCHEDULED FOR 11/06/23. PLEASE REFER TO APPROPRIATE SECTION WITHIN THIS EVALUATION FOR COMPLETE LIST OF GOALS AND PLAN OF CARE. Primary Functional Limitations LIMITED COMMUNITY AMB STAIRS STDG SQUATTING BALANCE Plan of Care Rehabilitation Potential Good Physical Therapy Goals PATIENT PROVIDED PRE-OP EXERCISES, SYMPTOM MGMT, AND GT. POST OP GOALS TO BE ESTABLISHED BY TREATING THERAPIST. Coordination/Communication With Referral Source Treatment Plan/Direct Interventions Therapeutic Exercises Frequency/Duration 1X Patient Will Be Discharged From Therapy Completion of LTG(s) Evaluation Billing Untimed Code Treatment Minutes 15 PT Eval No Charge No Complexity Low Certification Information Initial Certification Date 10/28/24 Ending Certification Date 01/25/25 Provider Signature Required Yes Provider Signature Shows Agreement With POC & Medical Necessity Physician NPI Number Write NPI# Here Physician Comment/Change : Physician Signature & Date Requested Please Sign/Date Here
== END 2025-02-25 23:59 | disposition home or self-care (01) ==
PROVIDERS: PCP Family Medicine; Visit Provider Orthopaedic Surgery Sports Medicine
DX: M16.11 Unilateral primary osteoarthritis, right hip (principal); Z96.641 Presence of right artificial hip joint; Z51.89 Encounter for other specified aftercare
CPT/HCPCS: 97110; 97161

== ENCOUNTER 2024-11-06 08:13 | Inpatient (IN) | payer MEDICARE, BC, SELFPAY ==
[2024-11-06] VITALS (28 sets, daily range): BP systolic 93–144; BP diastolic 49–74; PULSE 60–83; RESP 12–18; TEMP 35.7–36.9; O2SAT 94–99; BMI 21.9
--- NOTE | 2024-11-06 08:58 | W.PM.H&PU ---
History & Physical Update History & Physical Update H&P Reviewed and patient assessed: No changes noted
[2024-11-06] MEDS: SODIUM CHLORIDE 0.9 % (FLUSH) 10 ML SYRINGE IVF (09:00)
[2024-11-06] MEDS: OXYCODONE (CR) 10 MG TAB.ER.12H PO (09:00)
[2024-11-06] MEDS: LACTATED RINGERS 1000 ML 1,000 ML 100 ML IV (09:00)
[2024-11-06] MEDS: ACETAMINOPHEN 500 MG TABLET 1000 MG PO ×3 (09:00→20:58)
[2024-11-06] MEDS: fentaNYL 100 MCG/2 ML inj IVP (10:03)
[2024-11-06] MEDS: MIDAZOLAM HCL 1 MG/ML inj IVP (10:03)
--- NOTE | 2024-11-06 10:07 | SUR.PREOP ---
TIME?OUT:?1002 PT/RN/MDA?VERIFICATION?OF?SURGICAL?SITE,?PROCEDURE,?AND?CONSENT OBTAINED?PRIOR?TO?INVASIVE?PROCEDURE.
--- NOTE | 2024-11-06 10:45 | CRLHL7_ITS ---
For Patients: As a result of the Cures Act, medical imaging exams and procedure reports are released immediately into your electronic medical record. You may view this report before your referring provider. If you have questions, please contact your health care provider. Indication: Hip replacement surgery Technique: AP hip fluoroscopic image. Fluoroscopy time 35.2 seconds. Findings/Impression: Hardware from a left total hip arthroplasty is in satisfactory position. Dictated by Chema Waters MD @ 11/06/2024 12:34:43 PM (Electronically Signed)
--- NOTE | 2024-11-06 10:55 | CRLHL7_ITS ---
For Patients: As a result of the Cures Act, medical imaging exams and procedure reports are released immediately into your electronic medical record. You may view this report before your referring provider. If you have questions, please contact your health care provider. Indication: Postop Technique: AP hip centered pelvis and lateral view left hip Findings/Impression: Hardware from a left total hip arthroplasty is in satisfactory position. Bone alignment is normal. No sign of acute fracture. Postop changes are within normal limits. Dictated by Chema Waters MD @ 11/06/2024 1:16:26 PM (Electronically Signed)
[2024-11-06] MEDS: CEFAZOLIN 2 GM in 0.9 % SODIUM CHLORIDE Mini-bag 100 ML IVPB (11:02)
[2024-11-06] MEDS: TRANEXAMIC ACID 100 MG/ML INJ 1000 MG IV (11:07)
--- NOTE | 2024-11-06 11:20 | P.NB_ITS ---
Nerve Block Nerve Block Time Seen by Provider: 10:05 Date Seen: 11/06/24 Type of block requested by surgeon for post-operative analgesia: SAHIL/LFCN Side: left Time out performed: Yes Verification of patient name: Yes Verification of date of : Yes Site marking: site marked Name of person performing procedure: Darryl Continuous monitoring Was continuous monitoring of O2 sat, B/P, residential service technician, recorded every 15 minutes?: Yes Procedure Checklist: sterile prep, needles and gloves Ultrasound guided. Images saved: Yes Medications given in 5ml increments after negative aspiration: Ropivicaine %: 0.5 mL: 30 Needle gauge: 20 Precedex (mcg): 25 Patient tolerated procedure well: Yes Additional comments: Needle noted below psoas tendon needle noted adjacent to LFCN Block Charges Block Charge (with Pro Fee): Other Periph Nerve Block Use of Ultrasound Machine for Block: Yes- US Guidance/pain block
--- NOTE | 2024-11-06 11:21 | P.ANES_ITS ---
Anesthesia Charges Start Date/Time Anesthesia Start Date: 11/06/24 Anesthesia Start Time: 10:42 Stop Date/Time Anesthesia Stop Date: 11/06/24 Anesthesia Stop Time: 12:49 Summary Extremes of Age - Over 70 or under 1: MDA Coding CPT Codes CPT Codes: ANESTH HIP ARTHROPLASTY - 51468 ([id number]) P3 - PATIENT W/SEVERE SYS DISEASE, QK - DOOR LINER HELPER 2-4 CNCRNT ANES PROC, QX - MUSIC PRODUCER SVC W/ MD MED DIRECTION Additional Codes: Summary - Extremes of Age - Over 70 or under 1: MDA ([id number])
--- NOTE | 2024-11-06 11:21 | W.ANESCHARGE ---
Anesthesia Charges Start Date/Time Anesthesia Start Date: 11/06/24 Anesthesia Start Time: 10:42 Stop Date/Time Anesthesia Stop Date: 11/06/24 Anesthesia Stop Time: 12:49 Summary Extremes of Age - Over 70 or under 1: MDA Coding CPT Codes CPT Codes: ANESTH HIP ARTHROPLASTY - 26029 ([id number]) P3 - PATIENT W/SEVERE SYS DISEASE, QK - PHOTOGRAPHER NEWS 2-4 CNCRNT ANES PROC, QX - BUTADIENE CONVERTOR OPERATOR SVC W/ MD MED DIRECTION Additional Codes: Summary - Extremes of Age - Over 70 or under 1: MDA ([id number])
--- NOTE | 2024-11-06 12:12 | PM.ORPRC ---
Procedure Note Date of procedure: 11/06/24 Procedure: PREOPERATIVE DIAGNOSIS: 1. Left hip osteoarthritis, severe, primary POSTOPERATIVE DIAGNOSIS: 1. Left hip osteoarthritis, severe, primary PROCEDURE: 1. Left total hip arthroplasty-anterior approach 2. [id number] - intraoperative fluoroscopy up to 1 hour. SURGEON: Sal[place] Mckee MD. LIME SLAKER: Carson Corral PA-C; TAM Villalobos - Of note, a skilled certified teacher assistant was critical for this case to aid in patient positioning, tissue retraction, limb manipulation/positioning, dislocation/relocation, patient safety, and closure. ANESTHESIA: Spinal anesthetic EBL: 200 mL IMPLANTS: DePuy J&J uncemented total hip [place] cup size 44 multi hole, hole eliminator, +4 / 10 degree neutral liner Actis stem, standard offset, size 4 +5 mm ceramic 28 mm head. COMPLICATIONS: None evident INDICATIONS: The patient is a pleasant 79-year-old female who has experienced severe left hip pain and difficulty bearing weight. Workup included x-rays which revealed severe osteoarthrosis in the hip. Given the deformity, the dysfunction, and the pain, as well as the failure of nonoperative management, recommendation was made for surgery. FINDINGS: Full-thickness chondral loss diffusely throughout the femoral head and acetabulum. Osteophytes around the femoral head/neck junction and perimeter of the acetabulum. Large effusion upon entering the joint. DESCRIPTION OF PROCEDURE: Following a thorough discussion of risks, benefits, and alternatives consent was obtained and the left hip was marked. The patient was brought to the operating room and placed supine on the operating table. Induction of anesthesia was undertaken. 1 g IV Ancef and 1 g tranexamic acid was administered within 1 hr of incision preoperatively. Proper time-out was performed identifying proper patient, site, procedure. The operative extremity was prepped and draped in the appropriate sterile fashion using ChloraPrep after the patient was positioned on the [place] table with head in neutral alignment and all bony prominences well padded. C-arm fluoroscopic imaging was utilized to confirm proper pelvis rotation and position, and to get true AP films of both the contralateral left, and the affected left hip. This is for comparison. A longitudinal incision was made starting approximately 1 cm distal to the ASIS, and 3-4 cm lateral. The incision was extended distally aiming toward the lateral border the patella. Sharp incision through skin and bovie cautery through the subcutaneous tissue allowed identification of the TFL fascia. This was sharply divided, and the fascia bluntly released from the muscle fibers as we dissected medial. Upon coming to the medial border, we were able to retract the TFL laterally, and penetrated the deeper fascia and identify the crossing circumflex vessels. These were ligated/cauterized. The rectus was elevated from the capsule, and retractors placed laterally and medially along the femoral neck to help with visualization of the capsule. We then performed an inverted T capsulotomy. The capsule was tagged for later repair. Retractors were placed inside the capsule. The femoral neck was visualized after releasing medially down to the lesser trochanter, along the saddle laterally, and up onto the acetabulum. The femoral neck cut was made in line with our preoperative templating. The head was removed in a single piece, and sized. We turned our attention to acetabular preparation. Initially, the labrum was resected from around the perimeter, the pulvinar was excised, allowing us to visualize the false wall. We started the reaming with a 43 mm reamer. This was medialized down to the true wall. We then enlarged our reamers sequentially up to one size less than the selected cup size. We trialed at the same size and found it to have an excellent fit. The selected cup was then opened, inserted, and impacted in line with the goal of 40-45? of abduction, and 20-25? of anteversion. This was confirmed on C-arm fluoroscopic imaging to be in the appropriate/goal position. Once the cup was placed we placed a hole eliminator and a liner consistent with preop planning (of note, the liner 10 degree aspect was placed anteriorly). Attention was turned to the femoral preparation. The limb was extended, externally rotated, and adducted. The posteromedial capsule was released, as retractors were placed allowing excellent access to the proximal femur. Initially a box maker paperboard was followed by canal finder followed by various broaches. We broached sequentially up to size noted above, found it to have excellent rotational control, and trialing various heads and necks, revealed that appropriate neck offset, and the above noted head size provided the greatest stability, and scientologist of length, and offset. C-arm fluoroscopic imaging confirmed position of the stem, as well as leg lengths, which were compared with the pre procedure all fluoroscopic images. Trial implants were removed, the real femoral stem inserted, as was the ceramic head. After reducing, the leg was placed through range of motion and stability was confirmed anterior, posterior, and lateral. A 3 min Betadine soak was then performed, and thorough irrigation with normal saline followed. Closure of the capsule was performed with #1 PDS. Bleeding was confirmed to be controlled at this stage, and the TFL fascia was closed with #0 strata fix. Subcutaneous, and subcuticular closure was performed with 2-0 Vicryl and 4-0 Monocryl, respectively. Dressings were applied, and the patient was awoken from anesthesia and transferred the PACU in stable condition. A skilled certified teacher assistant was critical for this case to aid in patient positioning, tissue retraction, proximal femur exposure, limb manipulation/positioning, dislocation/relocation, patient safety, and closure. PLAN: 1. Weight bear as tolerated operative extremity. 2. 23 hr perioperative antibiotics. 3. Ice. 4. PT/OT consults for ambulation assistance/mobility education. 5. Social work consult for discharge planning. 6. DVT prophylaxis with at SCDs and Xarelto x5 days followed by aspirin for a total of 1 month..
--- NOTE | 2024-11-06 12:50 | P.ANES_ITS ---
Anesthesia Charges Start Date/Time Anesthesia Start Date: 11/06/24 Anesthesia Start Time: 10:42 Stop Date/Time Anesthesia Stop Date: 11/06/24 Anesthesia Stop Time: 12:49 Summary Extremes of Age - Over 70 or under 1: AADC PLANS STAFF OFFICER Coding CPT Codes CPT Codes: ANESTH HIP ARTHROPLASTY - 05022 ([id number]) P3 - PATIENT W/SEVERE SYS DISEASE, QK - HORIZONTAL RESAW OPERATOR 2-4 CNCRNT ANES PROC, QX - AADC PLANS STAFF OFFICER SVC W/ MD MED DIRECTION Additional Codes: Summary - Extremes of Age - Over 70 or under 1: AADC PLANS STAFF OFFICER ([id number])
--- NOTE | 2024-11-06 12:50 | W.ANESCHARGE ---
Anesthesia Charges Start Date/Time Anesthesia Start Date: 11/06/24 Anesthesia Start Time: 10:42 Stop Date/Time Anesthesia Stop Date: 11/06/24 Anesthesia Stop Time: 12:49 Summary Extremes of Age - Over 70 or under 1: MARKET RESEARCH SENIOR PROJECT MANAGER Coding CPT Codes CPT Codes: ANESTH HIP ARTHROPLASTY - 91989 ([id number]) P3 - PATIENT W/SEVERE SYS DISEASE, QK - COST ESTIMATING ENGINEER 2-4 CNCRNT ANES PROC, QX - MARKET RESEARCH SENIOR PROJECT MANAGER SVC W/ MD MED DIRECTION Additional Codes: Summary - Extremes of Age - Over 70 or under 1: MARKET RESEARCH SENIOR PROJECT MANAGER ([id number])
[2024-11-06] MEDS: HYDROmorphone 0.5 mg/0.5 ml inj IVP (14:03)
[2024-11-06] MEDS: LACTATED RINGERS 1000 ML 1,000 ML 75 ML IV (14:10)
[2024-11-06] MEDS: OXYCODONE 5 MG TABLET PO ×2 (14:33→17:23)
[2024-11-06] MEDS: hydrOXYzine pamoate 25 MG CAPSULE PO (14:34)
--- NOTE | 2024-11-06 16:22 | PM.IMCN1 ---
Date of Consult Patient: [facility] Patient Consult date: 11/06/24 Requesting Physician: Orthopedics Primary Care Provider: Anna Marie Lopez MD Consult Narrative Reason for consult: Medical management Narrative: Nataly Escalante is a 79 year old female past medical history significant for COPD, GURJIT, hypercholesterolemia, PTSD, schizoaffective disorder, cognitive impairment, major neurocognitive disorder is POD#) s/p left SHASHI, Dr. Mckee. There have been no perioperative complications or nursing concerns reported. Mild postoperative hypotension, improving. Estimated total blood loss documented as 200 ml. Updated and reviewed the active medical problems, past medical history, past surgical history, social history, allergies and medications in our electronic EMR. Postoperatively, patient reports pain is adequately managed. Has some paresthesias as the block is wearing off. Denies headache or dizziness. Denies chest pain or shortness of breath. No nausea. Tolerating orals. Review of Systems Narrative: REVIEW OF SYSTEMS: Complete review of systems performed and negative unless otherwise stated in HPI or below. PFSH PFSH Medical History Major neurocognitive disorder ?F03.90 - Unspecified dementia, unspecified severity, without behavioral disturbance, psychotic disturbance, mood disturbance, and anxiety (ICD-10) Cognitive impairment, mild, so stated ?G31.84 - Mild cognitive impairment of uncertain or unknown etiology (ICD-10) Severe persistent allergic asthma without complication ?J45.50 - Severe persistent asthma, uncomplicated (ICD-10) COPD (chronic obstructive pulmonary disease) ?J44.9 - Chronic obstructive pulmonary disease, unspecified (ICD-10) Schizoaffective disorder ?F25.9 - Schizoaffective disorder, unspecified (ICD-10) Generalized anxiety disorder ?F41.1 - Generalized anxiety disorder (ICD-10) PTSD (post-traumatic stress disorder) ?F43.10 - Post-traumatic stress disorder, unspecified (ICD-10) Surgical History History of arthroscopy of left shoulder (05/20/04) ?Z98.890 - Other specified postprocedural states (ICD-10) History of arthroscopy of left shoulder (05/03/17) ?Z98.890 - Other specified postprocedural states (ICD-10) History of total right hip arthroplasty (06/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) ?Z96.641 - Presence of right artificial hip joint (ICD-10) History of arthroscopy of right shoulder ?Z98.890 - Other specified postprocedural states (ICD-10) History of total abdominal hysterectomy ?Z90.710 - Acquired absence of both cervix and uterus (ICD-10) History of neck surgery (11/18/13) ?Z98.890 - Other specified postprocedural states (ICD-10) History of breast biopsy ?Z98.890 - Other specified postprocedural states (ICD-10) Social History Narrative: former smoker (quit prior to 1999) What is your current living situation?: I presently have a place to live Problems where you live: no known problems Problems where you live details: none In the past 12 months, utilities in danger of being shut off: no In past 12 months, lack of transportation kept you from medical appts, meetings, work, or getting things needed for daily living: no In the past 12 mos, have been you worried that your food would run out before you had money to buy more?: never true In the past 12 mos, the food you bought just didn't last and you didn't have money to buy more?: never true Highest level of school completed/degree received: Master's degree Smoking Status: Never smoker Do you use any of these nicotine containing products: None Second hand tobacco smoke exposure: No How often do you have a drink containing alcohol: monthly or less Alcohol type: wine How many standard drinks containing alcohol do you have on a typical day: 1 or 2 How often do you have six or more drinks on one occasion: Never AUDIT-C Alcohol total score: 1 Non-prescribed substance use: denies use Caffeine: Yes How often does anyone, including family, friends and others, physically hurt you: never How often does anyone, including family, friends and others, insult or talk down to you: never How often does anyone, including family, friends and others, threaten you with harm: never How often does anyone, including family, friends and others, scream or curse at you: never service: No Meds Home Medications and Allergies Home Medications ?Medication ?Instructions ?Recorded ?Confirmed ?Type atorvastatin 40 mg tablet 80 mg PO HS 08/19/22 11/06/24 History montelukast 10 mg tablet 10 mg PO HS 08/19/22 11/06/24 History sertraline 100 mg tablet 100 mg PO BID 08/19/22 11/06/24 History trazodone 50 mg tablet 50 mg PO HS PRN 08/19/22 11/06/24 History cyanocobalamin (vitamin B-12) 1,000 mcg PO DAILY 09/30/23 11/06/24 History 1,000 mcg tablet budesonide-formoterol HFA 160 2 puff inhalation BID 08/20/24 11/06/24 History mcg-4.5 mcg/actuation aerosol inhaler (Symbicort) tiotropium bromide 2.5 2 puff inhalation DAILY 08/20/24 11/06/24 History mcg/actuation mist for inhalation (Spiriva Respimat) ipratropium 0.5 mg-albuterol 3 mg 3 ml inhalation Q6H PRN 11/06/24 11/06/24 History (2.5 mg base)/3 mL nebulization soln omeprazole 20 mg capsule,delayed 20 mg PO DAILY 11/06/24 11/06/24 History release Allergies Allergy/AdvReac Type Severity Reaction Status Date / Time Iodine and Iodide Containing Allergy Verified 11/06/24 09:20 Produc lisinopril AdvReac Mild Cough and Verified 11/06/24 09:20 upset stomach contrast dye Allergy Mild Hives Uncoded 04/30/24 10:45 Exam Narrative: Exam Narrative: PHYSICAL EXAM General: Pleasant, conversant, NAD HEENT: Normocephalic, atraumatic, sclera white, EOMI, oral mucosa moist Cardiovascular: RRR, S1S2. No pitting edema Pulmonary: CTA bilaterally without rhonchi, rales, expiratory wheezes. No dyspnea Neurological: Alert, answering questions appropriately, cranial nerves intact, no focal findings Extremities: No gross joint deformity or swelling. Postoperative dressing in place, dry. Neurovascularly intact Skin: Warm, dry. Const: Vital Signs, click to edit/add: Vital Signs - 24 hr 11/06/24 09:23 11/06/24 10:04 11/06/24 10:10 Temperature 98.4 F Pulse Rate 78 74 68 Respiratory Rate 16 14 14 Blood Pressure 112/69 126/74 115/67 Pulse Oximetry 95 96 97 Oxygen Delivery Me thod Room Air Nasal Cannula Nasal Cannula Oxygen Flow Rate 2.5 2.5 11/06/24 10:15 11/06/24 10:20 11/06/24 10:25 Temperature Pulse Rate 72 71 73 Respiratory Rate 14 14 14 Blood Pressure 108/62 103/58 L 106/58 L Pulse Oximetry 98 98 97 Oxygen Delivery Me thod Nasal Cannula Nasal Cannula Nasal Cannula Oxygen Flow Rate 2.5 2.5 2.5 11/06/24 10:30 11/06/24 10:35 11/06/24 12:45 Temperature 98.0 F Pulse Rate 69 73 66 Respiratory Rate 14 14 18 Blood Pressure 94/59 L 106/60 93/55 L Pulse Oximetry 99 98 96 Oxygen Delivery Me thod Nasal Cannula Nasal Cannula Room Air Oxygen Flow Rate 2.5 2.5 11/06/24 12:50 11/06/24 12:55 11/06/24 13:00 Temperature Pulse Rate 62 66 64 Respiratory Rate 14 13 12 Blood Pressure 96/52 L 97/55 L 97/49 L Pulse Oximetry 95 96 95 Oxygen Delivery Me thod Oxygen Flow Rate 11/06/24 13:05 11/06/24 13:10 11/06/24 13:25 Temperature 98.2 F 96.2 F L Pulse Rate 67 60 60 Respiratory Rate 14 15 16 Blood Pressure 108/54 L 109/57 L 120/66 Pulse Oximetry 96 94 95 Oxygen Delivery Me thod Room Air Oxygen Flow Rate Assessment and Plan Assessment and plan (1) Osteoarthritis of left hip: Problem comment: -POD#0 s/p left total hip arthroplasty, Dr. Mckee -perioperative management including pain management and anticoagulation per Orthopedic surgery -encourage postoperative pulmonary hygiene -PT OT consults -plan to discharge home with daughter tomorrow Status: Acute (2) COPD (chronic obstructive pulmonary disease): Problem comment: -continue home medications, inhalers p.r.n. -important for postoperative pulmonary hygiene, incentive spirometry Status: Acute (3) Obstructive sleep apnea syndrome: Problem comment: -noted. Encourage postoperative pulmonary hygiene Status: Acute (4) Schizoaffective disorder: Problem comment: -noted on [facility] chart Status: Acute (5) Cognitive impairment, mild, so stated: Problem comment: -Monitor for acute delirium postoperatively Status: Acute (6) Major neurocognitive disorder: Problem comment: -noted [facility] chart Status: Acute Total Time Spent Total Time Spent: Total time spent caring for the patient today was 45 minutes. This includes time spent for the visit reviewing the chart, time spent during the visit, time spent after the visit and documentation and planning in coordination of care.
[2024-11-06] MEDS: CEFAZOLIN 1 GM in 0.9 % SODIUM CHLORIDE Mini-bag 100 ML IVPB (18:53)
--- NOTE | 2024-11-06 19:40 | PC.NURSE ---
End of shift report [id number]: Pleasant and cooperative with cares. Alert, oriented x 4. Patient does ask repetitive questions. Left hip dressing clean, dry and intact. Trace edema to surgical site, patient tolerating ice pack to hip. CMS to LLE intact, moderate weakness to LLE upon arrival to floor, movement and feeling returned by 1700. Pain to left hip well managed with current regimen. Patient states pain to hip feels like pressure and cramping. Transfers and ambulates with minimal assist x 1 with gait belt and walker. Void x 1 of 100cc, continue IV fluids. Dtr. bedside and will be staying with patient post discharge x 7 days, patient from [facility] assisted living [facility] and receives housekeeping services only. Daughter inquired at [facility] regarding increased services but did not receive a clear answer.
[2024-11-06] MEDS: ATORVASTATIN CALCIUM 40 MG TABLET 80 MG PO (20:57)
[2024-11-06] MEDS: MONTELUKAST 10 MG TABLET PO (20:58)
[2024-11-06] MEDS: SERTRALINE 100 MG TABLET PO (20:58)
[2024-11-06] MEDS: SENNOSIDES 1 TAB TABLET 2 TAB PO (20:58)
[2024-11-07 03:00] VITALS: BP 143/77; PULSE 73; RESP 16; TEMP 36.4; O2SAT 97
[2024-11-07] MEDS: CEFAZOLIN 1 GM in 0.9 % SODIUM CHLORIDE Mini-bag 100 ML IVPB (03:26)
[2024-11-07] MEDS: OXYCODONE 5 MG TABLET PO ×3 (03:26→10:57)
[2024-11-07] MEDS: ACETAMINOPHEN 500 MG TABLET 1000 MG PO ×2 (03:26→10:57)
[2024-11-07 06:44] LABS: Basophils Absolute Auto 0.02 K/uL (0.00-0.30); Basophils Percent Auto 0.3 % (0.0-3.0); Eosinophils Absolute Auto 0.05 K/uL (0.00-0.50); Eosinophils Percent Auto 0.6 % (0.0-7.0); Hemoglobin* 12.1 gm/dL (12.0-16.0); Immature Granulocytes Abs Auto 0.02 K/uL (0.00-0.30); Immature Granulocytes Pct Auto 0.3 %; Lymphocytes Percent Auto 15.9 % (20-44); Mean Corpuscular HGB Conc 33 gm/dL (32-36); Mean Corpuscular Hemoglobin 31 pg (26-34); Mean Corpuscular Volume 94 fL (80-100); Monocytes Percent Auto 8.9 % (0.0-11.0); Platelet Count* 161 K/uL (140-440); RDW Coefficient of Variation % 13.7 % (11.5-15.5); Red Blood Count 3.94 m/uL (4.00-5.20); White Blood Count* 7.98 K/uL (4.50-11.00)
[2024-11-07 06:47] LABS: Slide Review Reflex No
[2024-11-07] MEDS: OMEPRAZOLE 20 MG CAPSULE DR PO (06:48)
--- NOTE | 2024-11-07 06:54 | PC.NURSE ---
19-07: pleasant and cooperative. Rating pain 2/10, prn 5 mg oxy given x 2, at rest pt appears comfortable, notable increased pain with ambulation, pt needs encouragement & to be reminded to breathe when ambulating. A x 1 with gb and walker, tolerating fair. VSS. Dressing CDI, active ice on.
[2024-11-07 07:10] LABS: Potassium* 3.6 mmol/L (3.6-5.1); Sodium* 137 mmol/L (135-149)
[2024-11-07 07:13] LABS: Blood Urea Nitrogen* 9 mg/dL (7-30); Creatinine* 0.4 mg/dL (0.5-1.5); Est. Creatinine Clearance* 34.99; Estimated Glomerular Filt Rate 101 ml/min
[2024-11-07 08:07] VITALS: BP 131/66; PULSE 87; RESP 16; TEMP 36.8; O2SAT 95
[2024-11-07] MEDS: SENNOSIDES 1 TAB TABLET 2 TAB PO (08:39)
[2024-11-07] MEDS: RIVAROXABAN 10 MG TABLET PO (08:40)
[2024-11-07] MEDS: SERTRALINE 100 MG TABLET PO (08:40)
[2024-11-07] MEDS: Tiotropium Bromide [Spiriva Respimat] 2.5 mcg/actuation mist IH (08:41)
--- NOTE | 2024-11-07 13:13 | P.ORPN_ITS ---
Subjective Subjective Date Seen: 11/07/24 Principal diagnosis: Status postop day 1, left total hip arthroplasty - anterior approach Interval history: Patient reports doing well. No acute events over night. Pain managed with scheduled and PRN medications, ice. DVT prophylaxis: Rivaroxaban, SCDs, walking. Denies fevers, chills, aches, N/V, CP, SOB/SIMMONS, or lightheadedness. Ortho Exam Narrative Exam Narrative: -Patient appears comfortable in bed; no apparent acute distress. Daughter present -Alert and oriented times 3. Sometimes confused, but very coherent -Operative hip swollen; soft tissues supple; no obvious erythema. Ecchymosis minimal. Warmth appropriate -Surgical dressing clean, dry, intact; no obvious drainage, no erythematous streaking peripheral to the bandage -Bilateral calves soft and supple; no significant swelling, edema, tenderness, erythema, discoloration, warmth, or palpable cords -2+ DP/PT pulses, intact dermatomes and myotomes distally (5/5 strength). No numbness about the lateral femoral cutaneous nerve distribution. Const Vital Signs, click to edit/add: Vital Signs - 24 hr 11/06/24 13:25 11/06/24 13:25 11/06/24 13:30 Temperature 96.2 F L 96.2 F L 96.7 F L Pulse Rate 60 60 62 Pulse Rate [Left Pulse Oximeter] Respiratory Rate 16 16 16 Blood Pressure 120/66 120/66 122/63 Blood Pressure [Left Arm] Pulse Oximetry 95 95 96 Oxygen Delivery Method Room Air Room Air Room Air Oxygen Flow Rate 11/06/24 13:45 11/06/24 14:00 11/06/24 14:15 Temperature 96.7 F L 96.8 F L 96.8 F L Pulse Rate 60 61 68 Pulse Rate [Left Pulse Oximeter] Respiratory Rate 17 16 18 Blood Pressure 124/63 127/57 L 119/61 Blood Pressure [Left Arm] Pulse Oximetry 95 95 97 Oxygen Delivery Method Room Air Room Air Room Air Oxygen Flow Rate 11/06/24 14:45 11/06/24 15:00 11/06/24 15:15 Temperature 96.8 F L 97.2 F L Pulse Rate 72 67 Pulse Rate [Left Pulse Oximeter] Respiratory Rate 16 16 16 Blood Pressure 118/67 123/71 Blood Pressure [Left Arm] Pulse Oximetry 96 97 97 Oxygen Delivery Method Room Air Room Air Room Air Oxygen Flow Rate 11/06/24 16:15 11/06/24 17:15 11/06/24 18:15 Temperature 96.9 F L 96.9 F L 97.4 F L Pulse Rate 71 79 83 Pulse Rate [Left Pulse Oximeter] Respiratory Rate 16 18 16 Blood Pressure 123/73 144/53 H 116/69 Blood Pressure [Left Arm] Pulse Oximetry 97 96 94 Oxygen Delivery Method Room Air Room Air Room Air Oxygen Flow Rate 2.5 2.5 11/06/24 19:00 11/06/24 20:00 11/06/24 23:00 Temperature 97.7 F Pulse Rate 75 78 Pulse Rate [Left Pulse Oximeter] 75 Respiratory Rate 16 16 17 Blood Pressure 118/66 112/62 Blood Pressure [Left Arm] 136/72 Pulse Oximetry 97 Oxygen Delivery Method Room Air Room Air Room Air Oxygen Flow Rate 11/06/24 23:00 11/07/24 03:00 11/07/24 08:07 Temperature 97.6 F Pulse Rate Pulse Rate [Left Pulse Oximeter] 73 Respiratory Rate 16 16 Blood Pressure Blood Pressure [Left Arm] 143/77 H Pulse Oximetry 97 97 95 Oxygen Delivery Method Room Air Room Air Room Air Oxygen Flow Rate 11/07/24 08:07 Temperature 98.3 F Pulse Rate Pulse Rate [Left Pulse Oximeter] 87 Respiratory Rate 16 Blood Pressure Blood Pressure [Left Arm] 131/66 Pulse Oximetry 95 Oxygen Delivery Method Room Air Oxygen Flow Rate Assessment and Plan Assessment and plan (1) Osteoarthritis of left hip: Problem details: -POD#1 s/p left total hip arthroplasty, Dr. Mckee -perioperative management including pain management and anticoagulation per Orthopedic surgery -encourage postoperative pulmonary hygiene -PT OT consults -plan to discharge home with daughter tomorrow Status: Acute (2) COPD (chronic obstructive pulmonary disease): Problem details: -continue home medications, inhalers p.r.n. -important for postoperative pulmonary hygiene, incentive spirometry Status: Acute (3) Obstructive sleep apnea syndrome: Problem details: -noted. Encourage postoperative pulmonary hygiene Status: Acute (4) Schizoaffective disorder: Problem details: -noted on [facility] chart Status: Acute (5) Cognitive impairment, mild, so stated: Problem details: -Monitor for acute delirium postoperatively Status: Acute (6) Major neurocognitive disorder: Problem details: -noted [facility] chart Status: Acute Plan - Complete 23 hour perioperative antibiotics. - PT/OT consult for education and assistance. - Social work consult for discharge planning - Prescribed analgesics as needed - DVT prophylaxis: Rivaroxaban, walking, and SCDs - Anticipation is for discharge to home with family/friends today 11/07/2024 if the patient remains medically stable, pain is controlled, and they are safe with mobilization. -Of note, she will receive PT at [facility]. They have the PT orders.
== END 2024-11-07 13:26 | disposition home or self-care (01) | DRG 470 ==
PROVIDERS: Admitting Provider Orthopaedic Surgery Sports Medicine; PCP Family Medicine; Visit Provider Orthopaedic Surgery Sports Medicine
PROC: 0SRB03A Replacement of Left Hip Joint with Ceramic Synthetic Substitute, Uncemented, Open Approach (ICD-10-PCS; CPT 27130; principal; 2024-11-06 10:45)
DX: M16.12 Unilateral primary osteoarthritis, left hip (principal); J44.9 Chronic obstructive pulmonary disease, unspecified; G47.33 Obstructive sleep apnea (adult) (pediatric); F25.9 Schizoaffective disorder, unspecified; G31.84 Mild cognitive impairment of uncertain or unknown etiology; J45.40 Moderate persistent asthma, uncomplicated; G89.18 Other acute postprocedural pain
CPT/HCPCS: 01214; 36415; 64450; 73501; 76942; 82565; 84132; 84295; 84520; 85025; 86850; 86900; 86901; 97110; 97116; 97161; 97165; 97530; 97535; 99100; A9270; C1776; J0690; J1100; J1171; J2250; J2405; J2704; J2795; J3010; J7120

== ENCOUNTER 2025-01-16 15:16 | Emergency (ER) | payer MEDICARE, BC, SELFPAY ==
--- OUTSIDE RECORDS SUMMARY | 2025-01-16 15:19 | XMS_ITS | Clinical Summary ---
Author Organization [facility] Address [address] [place] [id number] Care Team Providers Care Reforestation Worker Name Role Phone Anna Marie Lopez MD Primary Care Provider Rodolfo Smallwood, Unavailable Julia Montiel [facility] [place] Unavailable Unavail able Steve Calvo MD Unavailable [phone] Allergies Active Allergy Reactions Criticality Noted Date Comments Codeine Nausea And Vomiting,Nausea Only 06/25/2014 Diatrizoate Allergen Hives Low 06/25/2014 PT CAN BE PREMEDICATED AND GIVEN NONIONIC CONTRST Iodine Hives 10/12/2017 Lisinopril Cough Low 08/19/2022 Opioids - Morphine Analogues Nausea Only 06/04/2008 Medications ipratropium (ATROVENT NASAL) 42 mcg (0.06 %) nasal sprayIndications:C hronic rhinitis Inhale 2 Sprays into affected nostril(s) 3 times daily if needed for Rhinitis. 45 mL 3 05/25/20 23 Active albuterol-ipratrop ium (DUONEB) (2.5-0.5 mg) in 3 mL NEBULIZATION solutionIndication s:COVID-19 virus infection,Severe persistent asthma, unspecified whether complicated (HC),Chronic cough USE 3 ML VIA NEBULIZER EVERY 6 HOURS NEEDED FOR SHORTNESS OF BREATH OR WHEEZING OR COUGH 90 mL 1 05/13/20 24 Active sertraline (ZOLOFT) 100 mg tabletIndications: Generalized anxiety disorder Take 1 Tablet (100 mg) by mouth two times daily. 180 Tablet 05/14/20 24 Active traZODone (DESYREL) 50 mg tabletIndications: Insomnia, unspecified type Take 1 Tablet (50 mg) by mouth at bedtime if needed for Sleep. 30 Tablet 2 05/14/20 24 Active atorvastatin (LIPITOR) 80 mg tabletIndications: Hyperlipidemia, unspecified hyperlipidemia type Take 1 Tablet (80 mg) by mouth at bedtime. 90 Tablet 3 08/21/20 24 Active cyanocobalamin (Vitamin B-12) 1,000 mcg tabletIndications: Low vitamin B12 level Take 1 Tablet (1,000 mcg) by mouth once daily. 90 Tablet 3 08/21/20 24 Active montelukast (SINGULAIR) 10 mg tabletIndications: Severe persistent asthma, unspecified whether complicated (HC) Take 1 Tablet (10 mg) by mouth at bedtime. 90 Tablet 3 08/21/20 24 Active omeprazole (PRILOSEC) 20 mg Delayed-Release capsuleIndications :Chronic GERD Take 1 Capsule (20 mg) by mouth once daily before a meal. 90 Capsule 3 08/21/20 24 Active umeclidinium (INCRUSE ELLIPTA) 62.5 mcg/actuation inhalerIndications :Chronic obstructive pulmonary disease, unspecified COPD type (HC) Inhale 1 Puff by mouth once daily. Discard inhaler 6 weeks after opening or when the counter reads '0' (after all blisters have been used), whichever comes first. 30 Each 11/01/19 25 Active albuterol HFA (PRO-AIR; VENTOLIN; PROVENTIL) 90 mcg/actuation inhalerIndications :Chronic cough Inhale 1-2 Puffs by mouth every 4 hours if needed for Shortness of Breath 1st choice or Wheezing 2nd choice. 1 Each 12/19/19 25 Active Breyna 160-4.5 mcg/actuation (160-4.5 mcg each actuation) inhalerIndications :Asthma, unspecified asthma severity, unspecified whether complicated, unspecified whether persistent (HC) Inhale 2 Puffs by mouth two times daily. 10.2 g 12/28/19 25 Active albuterol HFA (PRO-AIR; VENTOLIN; PROVENTIL) 90 mcg/actuation inhalerIndications :Chronic cough Inhale 1-2 Puffs by mouth every 4 hours if needed for Shortness of Breath 1st choice or Wheezing 2nd choice. 1 Each 11 08/29/20 24 025 Discontin ued(Reord er (E-cancel not sent)) budesonide-formote roL (Breyna) 160-4.5 mcg/actuation (160-4.5 mcg each actuation) inhalerIndications :Chronic obstructive pulmonary disease, unspecified COPD type (HC) Inhale 2 Puffs by mouth two times daily. 10.2 g 1 11/01/19 25 025 Discontin ued(*Medi cation adjustmen t) budesonide-formote roL (Breyna) 160-4.5 mcg/actuation (160-4.5 mcg each actuation) inhalerIndications :Asthma, unspecified asthma severity, unspecified whether complicated, unspecified whether persistent (HC) Inhale 2 Puffs by mouth two times daily. 10.2 g 12/19/19 25 025 Discontin ued(*Medi cation adjustmen t) Active Problems Problem Noted Date Diagnosed Date Major neurocognitive disorder 10/24/2024 Cognitive impairment 09/27/2024 Schizoaffective disorder, depressive type 2023 Chronic obstructive pulmonar y disease, unspecified COPD type 09/01/2023 Severe persistent asthma, unspecified whether co mplicated 10/06/2022 Moderate persistent asthma without complication 09/08/2021 Generalized anxiety disorder 11/28/2019 PTSD (post-traumatic stress disorder) 08/22/2018 Eczema 10/10/2008 Hypercholesterolemia 06/04/2008 Resolved Problems Problem Noted Date Diagnosed Date Resolved Date COPD with chronic bronchitis 03/29/2018 09/08/2021 Encounters Date Type Department Care Team Description 01/16/2025 Nurse Triage [facility] [[email or web address]] [address] [place] [address] Anna Marie Lopez MD Message (Call the patient ) 01/03/2025 10:00 AM CDT Telemedicine [facility] [[email or web address]] [address] [place] [phone] Rodolfo Smallwood PsyD, LP Individual Therapy; Trmt Plan; Telehealth 01/02/2025 Telephone [facility] [[email or web address]] [address] [place] [address] Anna Marie Lopez MD Referral 12/27/2024 Telephone [facility] [[email or web address]] [address] [place] [address] Anna Marie Lopez MD Referral (Physical Therapy) 12/19/2024 1:30 PM COMMUNITY ORGANIZATION AIDE Office Visit [facility] [address] [place] [address] Steve Calvo MD Follow Up 12/19/2024 Travel 12/05/2024 Telephone [facility] [address] [place] [phone] Steve Calvo MD Questions (results and form ) 12/04/2024 1:00 PM COMMUNITY ORGANIZATION AIDE Office Visit [facility] [[email or web address]] [address] [place] [address] Soy Wilkins MD Musculoskeletal Problem (Follow up left knee review RFA again.) 12/04/2024 Travel 11/06/2024 Orders Only [facility] Scanner 1 scan: (1-Ord) [facility], HIP LT POST OP, 11/06/2024 11/06/2024 Orders Only [facility] Scanner 1 scan: (1-Ord) [facility], XR HIP LT, 11/06/2024 10/30/2024 Telephone [facility] [address] [place] [phone] Steve Calvo MD Medication Management 10/25/2024 Orders Only [facility] [[email or web address]] [address] [place] [address] Macy Fuentes MD 1 scan: (1-Ord) NFLD-EKG-10/24/24 10/24/2024 1:30 PM COMMUNITY ORGANIZATION AIDE Office Visit [facility] [[email or web address]] [address] [place] [address] Macy Fuentes MD Preoperative Exam (LEFT HIP REPLACEMENT DOS 11/06/[address] [facility] [address] ERICA BARNHART [phone] ) 10/24/2024 Travel from Last 3 Months Immunizations Immunization Administration Dates Next Due COVID-19 VACCINE SPIKEVAX (M ODERNA 50MCG/0.5ML) 12YO+ PFS 10/06/2023 COVID-19 vaccine (Pfizer-Bio NTech 30mcg/0.3mL) 12YO+ MARCIA-SUCROSE PF, MDV 05/12/2022 COVID-19 vaccine (Pfizer-Bio NTech 30mcg/0.3mL) PF, MDV 12/22/2020,11/20/2020 Influenza, High-dose Inactivated 07/29/2024,06/24,08/08/2016 Influenza, High-dose Quadriv alent Inactivated 07/31/2019,10/09/2018,07/20/2017,2015 Influenza, Inactivated AIIV4 (Age 65+ Years) Preserv Free 10/06/2023 Influenza, Inactivated IIV3 (Age 65+ Years) Preserv Free 07/31/2019,10/09/2018 Pneumococcal Poly,23-Valent (Pneumovax) 07/20/2017 Pneumococcal conj 13-Valent (Prevnar 13) 04/06/2016 Td (Age >=7 Years) 09/23/2002 Tdap 03/26/2010,09/23/2002,10/23/1999 Family History Medical History Relation Name Comments Good Health Brother Alcoholism Father Cancer Father renal Diabetes Father Cancer-ovarian Mother Alzheimer's disease Sister 1 Cancer-breast Sister 1 Brain Aneurysm Sister 2 Relation Name Status Comments Brother Alive Father Mother Sister 1 Alive Sister 2 Social History Tobacco Use Types Packs/Day Years Used Date Smoking Tobacco: Former Cigarettes 30 1 975 - 2004 Smokeless Tobacco: Never Tobacco Cessation:Counseling Given: Yes Comments:occasional smoker in the past for about 20 years Alcohol Use Standard Drinks/Week Comments Yes 4 (1 standard drink = 0.6 oz pure alcohol) occasionally, 4 glasses wine per week, noted 03/26/24 PHQ-2 Answer Date Recorded PHQ-2 TOTAL SCORE 4 08/21/2024 Social Connections Answer Date Recorded Do you often feel lonely or isolated from those around you? 4 09/18/2024 Financial Resource Strain Answer Date R ecorded Difficulty of Paying Living Expenses 2 08/21/2024 Difficulty of Paying Living Expenses 1 08/21/2024 Food Insecurity Answer Date Recorded Do you worry your food will run out before you are able to buy more? 1 09/18/2024 Transportation Needs Answer Date Record ed Does lack of transportation keep you from medica l appointments? 1 09/18/2024 Does lack of transportation keep you from work, meetings or getting things that you need? 2 09/18/2024 Housing Stability Answer Date Recorded What is your housing situation today? 1 09/18/2024 Utilities Answer Date Recorded Do you have trouble paying f or utilities (for example, heat, electricity, water, phone)? 1 09/18/2024 Comments No Sex and Gender Information Value Date Recorded Sex Assigned at Female 08/02/2021 6:30 PM CDT Legal Sex Female 6:36 AM COMMUNITY ORGANIZATION AIDE Gender Identity Female 08/02/2021 6:30 PM CDT Sexual Orientation Straight 08/02/2021 6: 30 PM CDT Obstetrics History Last Filed Vital Signs Vital Sign Reading Time Taken Comments Blood Pressure 104/66 12/19/2024 1:45 PM COMMUNITY ORGANIZATION AIDE Pulse 90 12/19/2024 1:45 PM COMMUNITY ORGANIZATION AIDE Temperature 36.7 C (98.1 F) 12/04/2024 12:58 PM COMMUNITY ORGANIZATION AIDE Respiratory Rate 16 12/19/2024 1:45 PM COMMUNITY ORGANIZATION AIDE Oxygen Saturation 96% 12/19/2024 1:45 PM COMMUNITY ORGANIZATION AIDE Inhaled Oxygen Concentration - - Weight 52.6 kg (116 lb) 12/19/2024 1:45 PM COMMUNITY ORGANIZATION AIDE Height 154.9 cm (5' 1) 12/19/2024 1:45 PM COMMUNITY ORGANIZATION AIDE Body Mass Index 21.92 12/19/2024 1:45 PM COMMUNITY ORGANIZATION AIDE Plan of Treatment Upcoming Encounters Date Type Department Care Team (Late st Contact Info) Description 05/29/2025 11:30 AM CDT Office Visit [facility] [address] [place] [address] Steve Calvo MD [address] [address] Health Maintenance Due Date Last Done Comments Hepatitis C screening for ag e 18-79 1964 Zoster (shingles) series for age 50+ (1 of 2) 1996 DEXA/DXA scan for age 65+ 2011 Tetanus booster 03/26/2020 03/26/2010, 11/2001, 09/23/2002, Additional history exists RSV vaccine for adults or (1 - 1-dose 75+ series) 2021 COVID-19 vaccine series (2023- season) 2025 07/29/2024, 10/06/2023, 05/12/2022, Additional history exists Depression screening for age 12+ 08/22/2025 08/22/2024, 08/21/2024, 08/21/2024, Additional history exists Medicare Wellness for age 65+ 08/22/2025, 05/25/2023, 09/06/2021 BMI (ht and wt on same day) for age 18+ 12/19/2025 12/19/2024, 08/29/2024, 08/21/2024, Additional history exists Tdap Completed 03/26/2010, 11/2001, 10/23/1999 Pneumococcal series for age 50+ Completed 7, 04/06/2016 Influenza Vaccine Completed 07/29/2024, , 07/31/2019, Additional history exists Procedures Procedure Name Priority Date/Time Associated Diagnosis Comments SCAN-RADIOLOGY REPORT 11/06/2024 12:00 AM COMMUNITY ORGANIZATION AIDE SCAN-RADIOLOGY REPORT 11/06/2024 12:00 AM COMMUNITY ORGANIZATION AIDE EKG 12 LEAD Routine 10/25/2024 4:38 PM COMMUNITY ORGANIZATION AIDE Pre-op exam VA READING EKG - NO CHARGE, COMP ONLY Routine 10/25/2024 4:37 PM COMMUNITY ORGANIZATION AIDE Pre-op exam HEMOGLOBIN Routine 10/24/2024 2:30 PM COMMUNITY ORGANIZATION AIDE Pre-op exam from Last 3 Months Results * SCAN-RADIOLOGY REPORT (11/06/2024 12:00 AM COMMUNITY ORGANIZATION AIDE) Only the most recent of2 resultswithin the time period is included. Anatomical Region Laterality Modality Other us Scanner OTHER Final Result * EKG 12 LEAD (10/25/2024 4:38 PM COMMUNITY ORGANIZATION AIDE) us Macy Fuentes MD EKG ORD Final Resul t * VA READING EKG - NO CHARGE, COMP ONLY (10/25/2024 4:37 PM COMMUNITY ORGANIZATION AIDE) us Macy Fuentes MD PB - PROVIDER READINGS Dayana l Result * HEMOGLOBIN (10/24/2024 2:30 PM COMMUNITY ORGANIZATION AIDE) HEMOGLOBIN 12.6 11.7 - 15.5 g/dL [facility] Blood BLOOD SPECIMEN / Unknown 10/24/2024 2:30 PM COMMUNITY ORGANIZATION AIDE 10/24/2024 2:31 PM COMMUNITY ORGANIZATION AIDE Macy Fuentes MD HEMATOLOGY Final Resul t [facility] [address] [place] [phone], [facility] [address] [place] [phone] from Last 3 Months Additional Health Concerns Infection Onset Date Last Indicated Rule-Out C.diff 05/25/2020 05/25/2020 Insurance BLUE CROSS [employer] BLUE MR PB ONLY Advance Directives Documents on File Type Date Recorded 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
[2025-01-16 16:03] VITALS: BP 116/69; PULSE 94; RESP 18; TEMP 37.2; O2SAT 93; BMI 20.9
--- NOTE | 2025-01-16 16:06 | CRLHL7_ITS ---
For Patients: As a result of the Century Cures Act, medical imaging exams and procedure reports are released immediately into your electronic medical record. You may view this report before your referring provider. If you have questions, please contact your health care provider. INDICATION: Fall with right breast pain. TECHNIQUE: Chest 2 views. COMPARISON: 08/21/2024. FINDINGS: Cardiovascular and mediastinum: Heart size is normal. Unremarkable mediastinum. Lungs and pleural spaces: Lungs are clear. No sign of infiltrate or mass. No sign of pleural effusion. No pneumothorax. Bones and soft tissues: No significant findings. IMPRESSION: Negative chest. No sign of acute injury or disease. Dictated by Barry Siddiqui MD @ 01/16/2025 4:58:38 PM (Electronically Signed)
--- NOTE | 2025-01-16 18:45 | ED.GENADULT ---
HPI - General Adult General Date Seen: 01/16/25 Chief complaint: Fall/Minor Trauma Stated complaint: Fall last night, chest pain Time Seen by Provider: 01/16/25 18:37 History of Present Illness HPI narrative: 79 yo F with past medical history of asthma, GERD, depression/anxiety, dyslipidemia, previous left total hip replacement, left shoulder rate tender cuff tear, arthritis in her shoulder. She does not take any anticoagulants. She recently moved into a new apartment and yesterday was trying to organized some boxes. She came around the corner and lost her balance and fell forward and hit the front of her chest against the corner of a packing box. She notes that sometimes she gets trouble with her balance and she is pretty confidence that she just lost her balance and fell. She did not have a dizzy spell or presyncope or syncope. She did not have a seizure. Her only injury was she hit her anterior chest against the corner of the box. She has been having pain in that area of since then. In particular she has pain that hurts when she breathes deeply. She is not really short of breath but it does hurt to breathe. No cough. No fever. No other injuries from the fall. No back pain. No head injury. No abdominal pain. Related Data Home Medications ?Medication ?Instructions ?Recorded ?Confirmed atorvastatin 40 mg tablet 80 mg PO HS 08/19/22 12/17/24 montelukast 10 mg tablet 10 mg PO HS 08/19/22 12/17/24 sertraline 100 mg tablet 100 mg PO BID 08/19/22 12/17/24 trazodone 50 mg tablet 50 mg PO HS PRN 08/19/22 12/17/24 cyanocobalamin (vitamin B-12) 1,000 mcg PO DAILY 09/30/23 12/17/24 1,000 mcg tablet budesonide-formoterol HFA 160 2 puff inhalation BID 08/20/24 12/17/24 mcg-4.5 mcg/actuation aerosol inhaler (Symbicort) tiotropium bromide 2.5 2 puff inhalation DAILY 08/20/24 12/17/24 mcg/actuation mist for inhalation (Spiriva Respimat) ipratropium 0.5 mg-albuterol 3 mg 3 ml inhalation Q6H PRN 11/06/24 12/17/24 (2.5 mg base)/3 mL nebulization soln omeprazole 20 mg capsule,delayed 20 mg PO DAILY 11/06/24 12/17/24 release Previous Rx's ?Medication ?Instructions ?Recorded albuterol sulfate 90 mcg/actuation 1 - 2 inh inhalation Q2-3H PRN 08/18/23 aerosol inhaler shortness of breath or wheezing #8.5 grams acetaminophen 500 mg capsule 500 - 1,000 mg (1 - 2 x 500 mg) PO 11/07/24 Q6H PRN #100 caps aspirin 81 mg tablet,delayed 81 mg PO BID #50 tabs 11/07/24 release Allergies Allergy/AdvReac Type Severity Reaction Status Date / Time Iodine and Iodide Containing Allergy Verified 12/17/24 10:15 Produc lisinopril AdvReac Mild Cough and Verified 12/17/24 10:15 upset stomach contrast dye Allergy Mild Hives Uncoded 12/17/24 10:15 PFSH PFSH Medical History (Updated 01/16/25 @ 18:59 by Nikolai Singleton MD) Osteoarthritis of left hip ?M16.12 - Unilateral primary osteoarthritis, left hip (ICD-10) Obstructive sleep apnea syndrome ?G47.33 - Obstructive sleep apnea (adult) (pediatric) (ICD-10) Major neurocognitive disorder ?F03.90 - Unspecified dementia, unspecified severity, without behavioral disturbance, psychotic disturbance, mood disturbance, and anxiety (ICD-10) Cognitive impairment, mild, so stated ?G31.84 - Mild cognitive impairment of uncertain or unknown etiology (ICD-10) Severe persistent allergic asthma without complication ?J45.50 - Severe persistent asthma, uncomplicated (ICD-10) COPD (chronic obstructive pulmonary disease) ?J44.9 - Chronic obstructive pulmonary disease, unspecified (ICD-10) Schizoaffective disorder ?F25.9 - Schizoaffective disorder, unspecified (ICD-10) Generalized anxiety disorder ?F41.1 - Generalized anxiety disorder (ICD-10) PTSD (post-traumatic stress disorder) ?F43.10 - Post-traumatic stress disorder, unspecified (ICD-10) Surgical History (Updated 11/14/24 @ 11:32 by Carson Corral PA-C) History of total left hip arthroplasty (11/06/24) ?Z96.642 - Presence of left artificial hip joint (ICD-10) History of arthroscopy of left shoulder (05/20/04) ?Z98.890 - Other specified postprocedural states (ICD-10) History of arthroscopy of left shoulder (05/03/17) ?Z98.890 - Other specified postprocedural states (ICD-10) History of total right hip arthroplasty (06/21/21) ?Z96.641 - Presence of right artificial hip joint (ICD-10) History of arthroscopy of right shoulder ?Z98.890 - Other specified postprocedural states (ICD-10) History of total abdominal hysterectomy ?Z90.710 - Acquired absence of both cervix and uterus (ICD-10) History of neck surgery (11/18/13) ?Z98.890 - Other specified postprocedural states (ICD-10) History of breast biopsy ?Z98.890 - Other specified postprocedural states (ICD-10) Social History Narrative: former smoker (quit prior to 1999) What is your current living situation?: I presently have a place to live Problems where you live: no known problems Problems where you live details: none In the past 12 months, utilities in danger of being shut off: no In past 12 months, lack of transportation kept you from medical appts, meetings, work, or getting things needed for daily living: no In the past 12 mos, have been you worried that your food would run out before you had money to buy more?: never true In the past 12 mos, the food you bought just didn't last and you didn't have money to buy more?: never true Highest level of school completed/degree received: Master's degree Smoking Status: Never smoker Do you use any of these nicotine containing products: None Second hand tobacco smoke exposure: No How often do you have a drink containing alcohol: monthly or less Alcohol type: wine How many standard drinks containing alcohol do you have on a typical day: 1 or 2 How often do you have six or more drinks on one occasion: Never AUDIT-C Alcohol total score: 1 Non-prescribed substance use: denies use Caffeine: Yes How often does anyone, including family, friends and others, physically hurt you: never How often does anyone, including family, friends and others, insult or talk down to you: never How often does anyone, including family, friends and others, threaten you with harm: never How often does anyone, including family, friends and others, scream or curse at you: never service: No Exam Narrative: Exam Narrative: Constitutional: Appears well-developed and well-nourished. Alert. Conversant. Non toxic. HENT: Head: Atraumatic. Nose: Nose normal. Mouth/Throat: Oral mucosa is clear and moist. no trismus. Eyes: Conjunctivae normal. EOM normal. Pupils equal, round, and reactive to light. No scleral icterus. Neck: Normal range of motion. Neck supple. No tracheal deviation present. No tenderness. Cardiovascular: Normal rate, regular rhythm. No gallop. No friction rub. No murmur heard. Symmetric radial artery pulses . No JVD Pulmonary/Chest: Effort normal. No stridor. No respiratory distress. No wheezes. No rales. No rhonchi . She has purplish yellowish ecchymosis on the right anterior chest that corresponds to her area of discomfort. She is tender there. No crepitus. Abdominal: Soft. Bowel sounds normal. No distension. No mass. No tenderness. No rebound. No guarding. No CVA tenderness. Musculoskeletal: RUE: Normal range of motion. No tenderness. No deformity LUE: Normal range of motion. No tenderness. No deformity RLE: Normal range of motion. No edema. No tenderness. No deformity LLE: Normal range of motion. No edema. No tenderness. No deformity No T or L-spine tenderness. Neurological: Alert and oriented to person, place, and time. Normal strength. CN II-VII intact. No sensory deficit. GCS eye subscore is 4. GCS verbal subscore is 5. GCS motor subscore is 6. Normal coordination Skin: Skin is warm and dry. No rash noted. No pallor. Normal capillary refill. Psychiatric: Normal mood. Normal affect. Const: Vital Signs, click to edit/add: Vital Signs - 24 hr 01/16/25 16:03 Temperature 99 F Pulse Rate [Pulse Oximeter] 94 Respiratory Rate 18 Blood Pressure [Ri ght Upper Arm] 116/69 Pulse Oximetry 93 Oxygen Delivery Me thod Room Air Course Vital Signs Vital signs: Initial Vital Signs Temperature 99 F 01/16/25 16:03 Temperature Source Temporal Artery Scan 01/16/25 16:03 Pulse Rate 94 01/16/25 16:03 Respiratory Rate 18 01/16/25 16:03 Blood Pressure 116/69 01/16/25 16:03 Blood Pressure Mean 84 01/16/25 16:03 Pulse Oximetry 93 01/16/25 16:03 Oxygen Delivery Method Room Air 01/16/25 16:03 Vital Signs Temperature 99 F 01/16/25 16:03 Pulse Rate 94 01/16/25 16:03 Respiratory Rate 18 01/16/25 16:03 Blood Pressure 116/69 01/16/25 16:03 Pulse Oximetry 93 01/16/25 16:03 Oxygen Delivery Method Room Air 01/16/25 16:03 Temperature 99 F 01/16/25 16:03 Pulse Rate 94 01/16/25 16:03 Respiratory Rate 18 01/16/25 16:03 Blood Pressure 116/69 01/16/25 16:03 Pulse Oximetry 93 01/16/25 16:03 Oxygen Delivery Method Room Air 01/16/25 16:03 Medical Decision Making MDM Narrative Medical decision making narrative: This patient presents for evaluation after a injury to the chest. He she has isolated pain in her right anterior chest just lateral to the mid/upper sternum that corresponds to an area of tenderness and visible ecchymosis after she fell and struck the corner of a box in that area yesterday. The patient has good breath sounds in all ge and no hypoxia or tachycardia. There is no large hematoma or contusion or chest wall crepitus or flail segment.. No deformity. Chest x-ray shows no rib fracture, pneumothorax, hemothorax, or pulmonary contusion. Discussed sensitivity of plain films for fracture. However clinically she presentation is most consistent with chest wall contusion. With reasonable clinical certainty, I believe the patient is safe for discharge and can be safely managed as an outpatient. The patient was given return precautions and follow up instructions, they state understanding of these and ability to comply. Pain control as above. We discussed prevention of atelectasis and pulmonary toilet. Precautions for return to the ER reviewed. instructed to follow up as an outpatient. Pain control with [id number] medications such as Tylenol or ibuprofen. Imaging Data Chest x-ray: Attestation: I have reviewed the pertinent imaging results. Radiologist's impression: IMPRESSION: Negative chest. No sign of acute injury or disease. Discharge Plan Discharge Clinical Impression: Chest wall contusion Patient Disposition: Home, Self-Care Condition: Stable Instructions: Rib Contusion (ED) Additional Instructions: As we discussed, please come back to the ER right away if you have worsening trouble breathing, worsening chest pain, cough for fever, or if you have any other concerns. Right now your chest x-ray looks good. We do not see any sign of broken bones, punctured lungs, bruising of your lungs, or other internal injury. It usually will take a few weeks for a bruise like this to heal. To manage the pain use Tylenol 1000 mg every 6 hours as needed or ibuprofen 600 mg every 6 hours as needed. Be sure to take some nice deep breaths at least 3 or 4 times a day to help prevent pneumonia. Prescriptions: No Action montelukast 10 mg tablet 10 mg PO HS trazodone 50 mg tablet 50 mg PO HS PRN sertraline 100 mg tablet 100 mg PO BID atorvastatin 40 mg tablet 80 mg PO HS budesonide-formoterol [Symbicort] 160-4.5 mcg/actuation HFA aerosol inhaler 2 puff inhalation BID Rx Instructions: AND NEEDED Spiriva Respimat 2.5 mcg/actuation mist 2 puff inhalation DAILY cyanocobalamin (vitamin B-12) 1,000 mcg tablet 1,000 mcg PO DAILY albuterol sulfate 90 mcg/actuation HFA aerosol inhaler 1 - 2 inh inhalation Q2-3H PRN (Reason: shortness of breath or wheezing) Qty: 8.5 1RF omeprazole 20 mg capsule,delayed release(DR/EC) 20 mg PO DAILY ipratropium-albuterol 0.5 mg-3 mg(2.5 mg base)/3 mL solution for nebulization 3 ml inhalation Q6H PRN aspirin 81 mg tablet,delayed release (DR/EC) 81 mg PO BID Qty: 50 0RF Rx Instructions: Medication to help prevent blood clots postoperatively; take TWICE daily. acetaminophen 500 mg capsule 500 - 1,000 mg PO Q6H MDD 4000mg PRNQty: 100 0RF Follow Up/Referrals: Anna Marie Lopez MD [Primary Care Provider] - Stand Alone Forms: [email or web address] Info Instructions
--- OUTSIDE RECORDS SUMMARY | 2025-01-16 19:09 | XMS_ITS | Clinical Summary ---
Author Organization [facility] Address [address] [place] [id number] Care Team Providers Care Program Host Name Role Phone Anna Marie Lopez MD Primary Care Provider Rodolfo Smallwood, Unavailable Julia Montiel [facility] Unavailable Unavail able Steve Calvo MD Unavailable [phone] Allergies Active Allergy Reactions Criticality Noted Date [...] Department Care Team Description 01/16/2025 Nurse Triage [facility] [address] [place] [address] [address] Anna Marie Lopez MD Message (Call the patient ) 01/03/2025 10:00 AM CDT Telemedicine [facility] [address] [place] [address] [phone] Rodolfo Smallwood PsyD, LP Individual Therapy; Trmt Plan; Telehealth 01/02/2025 Telephone [facility] [address] [place] [address] Anna Marie Lopez MD Referral 12/27/2024 Telephone [facility] [address] [place] [address] Anna Marie Lopez MD Referral (Physical Therapy) 12/19/2024 1:30 PM BOAT DOCK OPERATOR Office Visit [facility] [address] [place] [address] Steve Calvo MD Follow Up 12/19/2024 Travel 12/05/2024 Telephone [facility] [address] [place] [phone] Steve Calvo MD Questions (results and form ) 12/04/2024 1:00 PM BOAT DOCK OPERATOR Office Visit [facility] [address] [place] [address] Soy Wilkins MD Musculoskeletal Problem (Follow up left knee review RFA again.) 12/04/2024 Travel 11/06/2024 Orders Only [facility] Scanner 1 scan: (1-Ord) [facility], HIP LT POST OP, 11/06/2024 11/06/2024 Orders Only [facility] Scanner 1 scan: (1-Ord) [facility], XR HIP LT, 11/06/2024 10/30/2024 Telephone [facility] [address] [facility] [address] [place] [phone] Steve Calvo MD Medication Management 10/25/2024 Orders Only [facility] [address] [place] [address] Macy Fuentes MD 1 scan: (1-Ord) [facility]D-EKG-10/24/24 10/24/2024 1:30 PM BOAT DOCK OPERATOR Office Visit [facility] [address] [place] [address] Macy Fuentes MD Preoperative Exam (LEFT HIP REPLACEMENT DOS 11/06/[address] [facility] [address] ERICA BARNHART [phone] ) 10/24/2024 Travel from Last 3 Months [...] PM CDT Legal Sex Female 6:36 AM BOAT DOCK OPERATOR Gender Identity Female 08/02/2021 6:30 PM CDT Sexual Orientation Straight 08/02/2021 6: 30 PM CDT Obstetrics History Last Filed Vital Signs Vital Sign Reading Time Taken Comments Blood Pressure 104/66 12/19/2024 1:45 PM BOAT DOCK OPERATOR Pulse 90 12/19/2024 1:45 PM BOAT DOCK OPERATOR Temperature 36.7 C (98.1 F) 12/04/2024 12:58 PM BOAT DOCK OPERATOR Respiratory Rate 16 12/19/2024 1:45 PM BOAT DOCK OPERATOR Oxygen Saturation 96% 12/19/2024 1:45 PM BOAT DOCK OPERATOR Inhaled Oxygen Concentration - - Weight 52.6 kg (116 lb) 12/19/2024 1:45 PM BOAT DOCK OPERATOR Height 154.9 cm (5' 1) 12/19/2024 1:45 PM BOAT DOCK OPERATOR Body Mass Index 21.92 12/19/2024 1:45 PM BOAT DOCK OPERATOR Plan of Treatment Upcoming Encounters Date Type Department Care Team (Late st Contact Info) Description 05/29/2025 11:30 AM CDT Office Visit [facility] [address] [place] [address] Steve Calvo MD [address] [address] Health Maintenance Due Date Last Done Comments [...] Diagnosis Comments SCAN-RADIOLOGY REPORT 11/06/2024 12:00 AM BOAT DOCK OPERATOR SCAN-RADIOLOGY REPORT 11/06/2024 12:00 AM BOAT DOCK OPERATOR EKG 12 LEAD Routine 10/25/2024 4:38 PM BOAT DOCK OPERATOR Pre-op exam [place] READING EKG - NO CHARGE, COMP ONLY Routine 10/25/2024 4:37 PM BOAT DOCK OPERATOR Pre-op exam HEMOGLOBIN Routine 10/24/2024 2:30 PM BOAT DOCK OPERATOR Pre-op exam from Last 3 Months Results * SCAN-RADIOLOGY REPORT (11/06/2024 12:00 AM BOAT DOCK OPERATOR) Only the most recent of2 resultswithin the time period is included. Anatomical Region Laterality Modality Other us Scanner OTHER Final Result * EKG 12 LEAD (10/25/2024 4:38 PM BOAT DOCK OPERATOR) us Macy Fuentes MD EKG ORD Final Resul t * [place] READING EKG - NO CHARGE, COMP ONLY (10/25/2024 4:37 PM BOAT DOCK OPERATOR) us Macy Fuentes MD PB - PROVIDER READINGS Dayana l Result * HEMOGLOBIN (10/24/2024 2:30 PM BOAT DOCK OPERATOR) HEMOGLOBIN 12.6 11.7 - 15.5 g/dL [facility] Blood BLOOD SPECIMEN / Unknown 10/24/2024 2:30 PM BOAT DOCK OPERATOR 10/24/2024 2:31 PM BOAT DOCK OPERATOR Macy Fuentes MD HEMATOLOGY Final Resul t [facility] [address] [place] [address], [facility] [address] [place] [address] from Last 3 Months Additional Health Concerns Infection Onset Date Last Indicated Rule-Out C.diff 05/25/2020 05/25/2020 Insurance [employer] [place] BL[employer] [facility] ONLY Advance Directives Documents on File Type Date Recorded Patient Human Resources Services Specialist Anton HERNANDEZ 06/28/2024 Care Teams Program Host Relationship Specialty Start Date End Date Anna Marie Lopez MD [address] [place] [address] PCP - General Family Practice 03/09/18 Rodolfo Smallwood PsyD, LP [address] [place] [address] Psychologist Psychology 02/24/20 Julia Montiel MBBS [address] [place] [address] Psychiatry 08/15/23 [place] [address] [place] [address] Pulmonology Pulmonary Medicine 12/07/23
--- OUTSIDE RECORDS SUMMARY | 2025-01-16 19:09 | XMS_ITS | Continuity of Care Document ---
Author Organization [facility] Address [address] [address] [place] [address] Phone Care Team Providers Care Applications Systems Analyst Name Role Phone Unavailable Unavailable Unavailable Allergies, [...] Diagnoses Date Provider Providers Copied on Encounter [facility], [address] [address], [place], [id number], [place] tel:[phone] [facility] No Information 3 No Information Offic/outpt E&m Estab Mod-hi 2 [facility], [address] [address], [place], [id number], [place] tel:[phone] [facility] Diarrhea (chief complaint) Abdominal pain (chief complaint) LLQ PainLLQ PainChange In Bowel Habits 3 Faye Arroyo. [address], [id number], [place]. tel:[phone] [facility], [address] [address], [place], [id number], [place] tel:[phone] [facility] Diverticulosis Of ColonBenign Neoplasm ColonLLQ PainBenign Neoplasm ColonLLQ PainDiverticul osis Of Colon 3 Faye Arroyo. [address] [facility] [address], [place], [id number], [place]. [phone] [facility], [address] [address], [place], [id number], [place] tel:[phone] [facility] No Information 5 Felipe Garza. [address] [facility] [address], [place], [id number], [place]. tel:[phone] Referring Provider: Gurpreet Otero, [facility], [place], [address]. tel:[phone] [facility], [address] [address], [place], [id number], [place] tel:[phone] [facility] No Information 5 Alcira Oquendo. [address] [facility], [place], [place], [id number], [place]. tel:[phone] Referring Provider: Gurpreet Otero, [address], [place], [address]. tel:[phone] Family History Family Member Type Diagnosis Age [...]
== END 2025-01-16 19:20 | disposition home or self-care (01) ==
PROVIDERS: Emergency Provider Emergency Medicine; PCP Family Medicine
DX: S20.211A Contusion of right front wall of thorax, initial encounter (principal); W01.10XA Fall on same level from slipping, tripping and stumbling with subsequent striking against unspecified object, initial encounter
CPT/HCPCS: 71046; 99283